=== PATIENT | female | born 1980 | race Caucasian/White ===

== ENCOUNTER 2018-01-14 14:18 | Outpatient (CLI) | payer MEDICAID, SELFPAY ==
[2018-01-14 14:56] LABS: Abs Immature Grans 0.01 k/cumm (0.0-0.09); Absolute Basophil Count 0.03 k/cumm (0.0-0.2); Absolute Eosinophil Count 0.18 k/cumm (0.0-0.7); Absolute Monocyte Count 0.59 k/cumm (0.11-0.7); Absolute Neutrophil Count 4.27 k/cumm (1.2-6.7); Basophils % 0.4; Eosinophils % 2.5; HCT 39.2 % (36.0-46.0); HGB 13.3 g/dL (12.0-15.5); Immature Grans % 0.1; Lymphocytes % 29.2; Mean Corp. HGB Concentration 33.9 g/dL (32.0-36.0); Mean Corpuscular Hemoglobin 29.7 pg (27.0-33.0); Mean Corpuscular Volume 87.5 fL (80-95); Mean Platelet Volume 8.9 fL (8.0-11.0); Monocytes % 8.2; Neutrophils % 59.6; Platelet Count 270 x1000/uL (130-400); RBC 4.48 m/cumm (4.00-5.20); RBC Distribution Width 12.5 % (11.7-14.6); White Blood Cell Count 7.18 k/cumm (4.4-10.8)
[2018-01-14 15:08] LABS: ALT 18 U/L (12-78); AST 16 U/L (15-37); Albumin 3.6 g/dL (3.4-5.0); Alkaline Phosphatase 75 U/L (46-116); Anion Gap 3.3 mmol/L (3-11); BUN 8 mg/dL (7-18); Bilirubin, Total 0.3 mg/dL (0.2-1.0); CO2 29.7 mmol/L (21.0-32.0); CREATININE 0.74 mg/dL (0.55-1.02); Calcium 8.6 mg/dL (8.5-10.1); Chloride 103 mmol/L (98-107); Glucose 102 mg/dL (70-100); Potassium 3.7 mmol/L (3.5-5.1); Sodium 136 mmol/L (136-145); Total Protein 7.2 g/dL (6.4-8.2)
== END 2018-01-14 14:38 ==
PROVIDERS: Visit Provider Internal Medicine Hematology & Oncology
DX: D69.3 Immune thrombocytopenic purpura (principal)
CPT/HCPCS: 36415; 80053; 85025

== ENCOUNTER 2018-04-06 13:06 | Emergency (ER) | payer OTHER, SELFPAY ==
[2018-04-06] VITALS (24 sets, daily range): BP systolic 107–126; BP diastolic 62–79; PULSE 75–114; RESP 7–24; TEMP 36.8; O2SAT 96–100
--- NOTE | 2018-04-06 13:17 | DI.CT_ITS ---
SYMPTOM/DIAGNOSIS: SOB/CHEST PAIN CHEST CT FOR PULMONARY EMBOLISM CT angiography was performed with multi slice acquisition and multi planar and 3D reconstruction. Comparison is made with 11 April 2017. No pulmonary emboli or aortic dissection is seen. No pleural or pericardial effusions are present. The heart size is normal. The previous exam showed bilateral pneumonia. There are small pulmonary nodules in the lower lobes which appear stable. IMPRESSION: No acute abnormality.
--- NOTE | 2018-04-06 13:20 | W.ED.GENAD ---
Discharge Plan Disposition Patient Disposition: HOME Condition: Stable Discharge Details Chief Complaint: RespSymp Clinical Impression: Infection, respiratory tract, Pleurisy Primary Care Provider: [facility] ED Provider: Garcia Franks Home Meds and New Rx's Prescriptions: Continue budesonide-formoterol [Symbicort] 80-4.5 mcg/actuation Hfa Aerosol Inhaler 1 puff Inhalation DAILY RF: 0 albuterol sulfate [ProAir HFA] 90 mcg/actuation Hfa Aerosol Inhaler 2 puff Inhalation Q4H PRN PRNRF: 0 Discontinued cephalexin 500 MG capsule 500 mg PO Q6H Qty: 19 RF: 0 lorazepam 0.5 MG tablet 0.5 mg PO BID PRN PRNQty: 10 RF: 0 Discharge Instructions Instructions: Pleurisy (ED), Upper Respiratory Infection (ED) Additional Instructions: Return immediately to the emergency department for any new or significant worsening of your symptoms. Otherwise follow-up with primary care as needed for reassessment or if not improving over the next week. Referrals: [facility] [Primary Care Provider] - (As needed for reassessment or if not improving) Discharge Data Discharge Date/Time-TO BE ENTERED AT DEPARTURE: 04/06/18 15:50 Medical Decision Making Patient presenting to the emergency department for chief complaint of chest pain. Patient states this morning she woke up with cough and some chest pain. She thought that it would go away but it is continued throughout the day. Patient does state history of pneumonia which felt similar in nature. Patient denies any fever chills but does state nasal congestion cough and sore throat that have been going on for the past couple days. Patient is very anxious and even states that she feels emotional at this time. Physical exam is unremarkable. Suspect viral upper respiratory tract infection with possible pleurisy but plan to check labs(including troponin) and include chest CT given the patient is tachycardic and short of breath along with chest. Pending results patient given acetaminophen and lorazepam. Given patient's emotional state there is a question of possible anxiety /panic attack exacerbating patient's symptoms Review of labs is unremarkable and shows no elevation of troponin, no leukocytosis, and a completely benign. CT imaging of the chest also shows no PE and no acute findings. Patient reassessed and states improvement in discomfort that chest pain seems to worsen with deep breathing and that she does have some posterior shoulder pain. Shoulder was palpated and shows soft tissue tenderness just below the scapula that reproduces discomfort. Given onset of symptoms is greater than 4 hours and I doubt ACS I do not feel that second troponin is needed. Patient was given lidocaine patch for shoulder discomfort and placed up on prednisone burst. Patient encouraged to return for any new or significant worsening of symptoms. After discussion of diagnosis and plan of care patient has no further needs, questions, or concerns and states clear understanding to return to the emergency department for any worsening symptoms. ECG Data Attestation: I personally reviewed and interpreted this ECG (s) as follows: Prior ECG tracings: available for review Interpretation: EKG reviewed with Dr. Mahmood and shows normal access sinus rhythm with rate of 89 and shows no acute ST changes HPI General Mode of arrival: ambulatory. Date/Time Provider Initiated Documentation: 04/06/18 13:07. Limitations to Documentation: no limitations. Information obtained by: patient and RN notes reviewed. History of Present Illness 37 year old F presents to the emergency department with the chief complaint of Chest pain, described as moderate, with intensity rated at 6. Quality is described as sharp, and is localized to the chest. Patient reports radiation to back. Patient started experiencing this hour(s) (5) and it has been constant. No relieving factors improve symptom(s), No exacerbating factors reported . Patient did receive the following treatments prior to arrival, other Related Data Home Medications Medication Instructions Recorded Confirmed albuterol sulfate [ProAir HFA] 2 puff INHALATION Q4H PRN PRN 04/06/18 04/06/18 budesonide-formoterol [Symbicort] 1 puff INHALATION DAILY 04/06/18 04/06/18 Allergies Allergy/AdvReac Type Severity Reaction Status Date / Time No Known Allergies Allergy Unverified 11/21/17 11:34 General Stated Complaint: RespSymp JULIO CESAR: 3 Review of Systems Constitutional Denies chills, Denies fever(s) and Denies malaise Cardiovascular Reports as per HPI, Reports chest pain, Denies syncope, Denies irregular heart rhythm, Denies palpitations and Denies dyspnea Respiratory Reports cough (x 4 days) and Denies dyspnea Gastrointestinal Denies abdominal pain, Denies nausea and Denies vomiting Neurologic Denies syncope Psychiatric Reports anxiety Endocrine Denies palpitations PFSH Family History Mother Breast cancer Maternal Grandfather Prostate cancer Maternal Aunt Breast cancer Lung cancer Maternal Cousin Non-Hodgkin lymphoma Maternal Great Aunt No problems noted. Maternal Great Aunt Colon cancer Maternal Great Aunt Lung cancer Maternal Great Aunt Asthma Maternal Great Grandmother Melanoma Maternal Great Grandfather Lung cancer Medical History ASCUS with positive high risk HPV cervical (05/01/16) Depression ITP (idiopathic thrombocytopenic purpura) Molluscum contagiosum Social History Smoking/Tobacco Use Status: Former Tobacco Use Surgical History Biopsy, Lymph Node section (01/27/16) wisdom tooth extraction Exam Const General: cooperative, anxious and not diaphoretic Nutritional Appearance: average body habitus Orientation: alert, awake and oriented x3 Limitations: mental status not altered Neck Neck: normal visual inspection, full ROM, trachea midline, supple and no anterior neck swelling Thyroid: thyroid normal Carotids: normal carotid upstroke and no bruits Chest Chest: normal inspection of the chest Resp Effort & Inspection: normal respiratory effort and able to speak in complete sentences Auscultation: clear to auscultation bilaterally Cardio Jugular venous pressure: no JVD Palpation: normal PMI Rate: regular rate Rhythm: regular rhythm Heart Sounds: S1 normal, S2 normal, no click, no gallops, no murmurs and no rubs Bruits: no abdominal aortic bruits and no carotid bruits Pulses: radial pulses present bilaterally 2+ GI Inspection: normal to inspection Palpation: soft, no aortic enlargement, no pulsatile masses and nontender Auscultation: normal bowel sounds Skin General skin exam: no rashes or lesions noted Neuro General: alert, awake, oriented x3, tone normal and moves all extremities Course Vital Signs Temperature 36.8 C 04/06/18 13:11 Pulse 105 H 04/06/18 13:11 Respiratory Rate 18 04/06/18 13:11 Blood Pressure 126/76 04/06/18 13:11 Pulse Oximetry 99 04/06/18 13:11 Temperature 36.8 C 04/06/18 13:11 Temperature Source Temporal Artery Scan 04/06/18 13:11 Pulse 105 H 04/06/18 13:11 Respiratory Rate 18 04/06/18 13:11 Respiratory Effort Incrsd Work of Breathing 04/06/18 13:14 Blood Pressure 126/76 04/06/18 13:11 Blood Pressure Position Sitting 04/06/18 13:11 Pulse Oximetry 99 04/06/18 13:11 Oxygen Delivery Method Room Air 04/06/18 13:11 Oxygen Flow Rate 0 04/06/18 13:11 Pain Level 6 04/06/18 13:11
--- NOTE | 2018-04-06 13:27 | ED.GENADUL_ITS ---
Discharge Plan Disposition Patient Disposition: HOME Condition: Stable Discharge Details Chief Complaint: RespSymp Clinical Impression: Infection, respiratory tract, Pleurisy Primary Care Provider: [facility] ED Provider: Garcia Franks Home Meds and New Rx's Prescriptions: Continue budesonide-formoterol [Symbicort] 80-4.5 mcg/actuation Hfa Aerosol Inhaler 1 puff Inhalation DAILY RF: 0 albuterol sulfate [ProAir HFA] 90 mcg/actuation Hfa Aerosol Inhaler 2 puff Inhalation Q4H PRN PRNRF: 0 Discontinued cephalexin 500 MG capsule 500 mg PO Q6H Qty: 19 RF: 0 lorazepam 0.5 MG tablet 0.5 mg PO BID PRN PRNQty: 10 RF: 0 Discharge Instructions Instructions: Pleurisy (ED), Upper Respiratory Infection (ED) Additional Instructions: Return immediately to the emergency department for any new or significant worsening of your symptoms. Otherwise follow-up with primary care as needed for reassessment or if not improving over the next week. Referrals: [facility] [Primary Care Provider] - (As needed for reassessment or if not improving) Discharge Data Discharge Date/Time-TO BE ENTERED AT DEPARTURE: 04/06/18 15:50 Medical Decision Making Patient presenting to the emergency department for chief complaint of chest pain. Patient states this morning she woke up with cough and some chest pain. She thought that it would go away but it is continued throughout the day. Patient does state history of pneumonia which felt similar in nature. Patient denies any fever chills but does state nasal congestion cough and sore throat that have been going on for the past couple days. Patient is very anxious and even states that she feels emotional at this time. Physical exam is unremarkable. Suspect viral upper respiratory tract infection with possible pleurisy but plan to check labs(including troponin) and include chest CT given the patient is tachycardic and short of breath along with chest. Pending results patient given acetaminophen and lorazepam. Given patient's emotional state there is a question of possible anxiety /panic attack exacerbating patient 's symptoms Review of labs is unremarkable and shows no elevation of troponin, no leukocytosis, and a completely benign. CT imaging of the chest also shows no PE and no acute findings. Patient reassessed and states improvement in discomfort that chest pain seems to worsen with deep breathing and that she does have some posterior shoulder pain. Shoulder was palpated and shows soft tissue tenderness just below the scapula that reproduces discomfort. Given onset of symptoms is greater than 4 hours and I doubt ACS I do not feel that second troponin is needed. Patient was given lidocaine patch for shoulder discomfort and placed up on prednisone burst. Patient encouraged to return for any new or significant worsening of symptoms. After discussion of diagnosis and plan of care patient has no further needs, questions, or concerns and states clear understanding to return to the emergency department for any worsening symptoms. ECG Data Attestation: I personally reviewed and interpreted this ECG (s) as follows: Prior ECG tracings: available for review Interpretation: EKG reviewed with Dr. Mahmood and shows normal access sinus rhythm with rate of 89 and shows no acute ST changes HPI General Mode of arrival: ambulatory . Date/Time Provider Initiated Documentation: 04/06/18 13:07 . Limitations to Documentation: no limitations . Information obtained by: patient and RN notes reviewed . History of Present Illness 37 year old F presents to the emergency department with the chief complaint of Chest pain, described as moderate, with intensity rated at 6. Quality is described as sharp, and is localized to the chest. Patient reports radiation to back. Patient started experiencing this hour(s) (5) and it has been constant. No relieving factors improve symptom(s), No exacerbating factors reported . Patient did receive the following treatments prior to arrival, other Related Data Home Medications Medication Instructions Recorded Confirmed albuterol sulfate [ProAir HFA] 2 puff INHALATION Q4H PRN PRN 04/06/18 04/06/18 budesonide-formoterol [Symbicort] 1 puff INHALATION DAILY 04/06/18 04/06/18 Allergies Allergy/AdvReac Type Severity Reaction Status Date / Time No Known Allergies Allergy Unverified 11/21/17 11:34 General Stated Complaint: RespSymp JULIO CESAR: 3 Review of Systems Constitutional Denies chills, Denies fever(s) and Denies malaise Cardiovascular Reports as per HPI, Reports chest pain, Denies syncope, Denies irregular heart rhythm, Denies palpitations and Denies dyspnea Respiratory Reports cough (x 4 days) and Denies dyspnea Gastrointestinal Denies abdominal pain, Denies nausea and Denies vomiting Neurologic Denies syncope Psychiatric Reports anxiety Endocrine Denies palpitations PFSH Family History Mother Breast cancer Maternal Grandfather Prostate cancer Maternal Aunt Breast cancer Lung cancer Maternal Cousin Non-Hodgkin lymphoma Maternal Great Aunt No problems noted. Maternal Great Aunt Colon cancer Maternal Great Aunt Lung cancer Maternal Great Aunt Asthma Maternal Great Grandmother Melanoma Maternal Great Grandfather Lung cancer Medical History ASCUS with positive high risk HPV cervical (05/01/16) Depression ITP (idiopathic thrombocytopenic purpura) Molluscum contagiosum Social History Smoking/Tobacco Use Status: Former Tobacco Use Surgical History Biopsy, Lymph Node section (01/27/16) wisdom tooth extraction Exam Const General: cooperative, anxious and not diaphoretic Nutritional Appearance: average body habitus Orientation: alert, awake and oriented x3 Limitations: mental status not altered Neck Neck: normal visual inspection, full ROM, trachea midline, supple and no anterior neck swelling Thyroid: thyroid normal Carotids: normal carotid upstroke and no bruits Chest Chest: normal inspection of the chest Resp Effort & Inspection: normal respiratory effort and able to speak in complete sentences Auscultation: clear to auscultation bilaterally Cardio Jugular venous pressure: no JVD Palpation: normal PMI Rate: regular rate Rhythm: regular rhythm Heart Sounds: S1 normal, S2 normal, no click, no gallops, no murmurs and no rubs Bruits: no abdominal aortic bruits and no carotid bruits Pulses: radial pulses present bilaterally 2+ GI Inspection: normal to inspection Palpation: soft, no aortic enlargement, no pulsatile masses and nontender Auscultation: normal bowel sounds Skin General skin exam: no rashes or lesions noted Neuro General: alert, awake, oriented x3, tone normal and moves all extremities Course Vital Signs Temperature 36.8 C 04/06/18 13:11 Pulse 105 H 04/06/18 13:11 Respiratory Rate 18 04/06/18 13:11 Blood Pressure 126/76 04/06/18 13:11 Pulse Oximetry 99 04/06/18 13:11 Temperature 36.8 C 04/06/18 13:11 Temperature Source Temporal Artery Scan 04/06/18 13:11 Pulse 105 H 04/06/18 13:11 Respiratory Rate 18 04/06/18 13:11 Respiratory Effort Incrsd Work of Breathing 04/06/18 13:14 Blood Pressure 126/76 04/06/18 13:11 Blood Pressure Position Sitting 04/06/18 13:11 Pulse Oximetry 99 04/06/18 13:11 Oxygen Delivery Method Room Air 04/06/18 13:11 Oxygen Flow Rate 0 04/06/18 13:11 Pain Level 6 04/06/18 13:11
[2018-04-06 13:29] LABS: Abs Immature Grans 0.02 k/cumm (0.0-0.09); Absolute Basophil Count 0.02 k/cumm (0.0-0.2); Absolute Eosinophil Count 0.32 k/cumm (0.0-0.7); Absolute Lymphocyte Count 2.32 k/cumm (1.2-3.4); Absolute Monocyte Count 0.56 k/cumm (0.11-0.7); Absolute Neutrophil Count 4.33 k/cumm (1.2-6.7); Basophils % 0.3; Eosinophils % 4.2; HCT 40.8 % (36.0-46.0); HGB 13.7 g/dL (12.0-15.5); Immature Grans % 0.3; Lymphocytes % 30.6; Mean Corp. HGB Concentration 33.6 g/dL (32.0-36.0); Mean Corpuscular Hemoglobin 29.7 pg (27.0-33.0); Mean Corpuscular Volume 88.3 fL (80-95); Monocytes % 7.4; Neutrophils % 57.2; Platelet Count 296 x1000/uL (130-400); RBC 4.62 m/cumm (4.00-5.20); RBC Distribution Width 12.8 % (11.7-14.6); White Blood Cell Count 7.57 k/cumm (4.4-10.8)
[2018-04-06 13:41] LABS: PTT Activated 26.5 sec (21.0-31.4); Prothrombin Time 9.9 sec (9.3-10.8)
[2018-04-06] MEDS: Omnipaque 350 MG/ML 100 ML BTL IJ (13:43)
[2018-04-06 13:45] LABS: ALT 21 U/L (12-78); AST 16 U/L (15-37); Albumin 3.8 g/dL (3.4-5.0); Alkaline Phosphatase 81 U/L (46-116); Anion Gap 8.5 mmol/L (3-11); BUN 9 mg/dL (7-18); Bilirubin, Total 0.2 mg/dL (0.2-1.0); CO2 28.5 mmol/L (21.0-32.0); CREATININE 0.71 mg/dL (0.55-1.02); Calcium 8.9 mg/dL (8.5-10.1); Chloride 101 mmol/L (98-107); Glucose 97 mg/dL (70-100); Magnesium 1.8 mg/dL (1.8-2.4); Potassium 3.7 mmol/L (3.5-5.1); Sodium 138 mmol/L (136-145); Total Protein 7.5 g/dL (6.4-8.2); Troponin I < 0.02 ng/mL (0.00-0.06)
[2018-04-06] MEDS: LORazepam 2 MG/ML VIAL 1 MG IVP (13:58)
--- NOTE | 2018-04-06 14:10 | DI.VRAD_ITS ---
EXAM: CT Angiography Chest With Intravenous Contrast EXAM DATE/TIME: 04/06/2018 1:19 PM CLINICAL HISTORY: 37 years old, female; Pain and signs and symptoms; Shortness of breath; Chest pain; Patient HX: Sob/chest pain; Additional info: Per PT: Symptoms started this morning; Pneumonia last year at same time TECHNIQUE: Axial computed tomographic angiography images of the chest with intravenous contrast using CT angiography protocol. Coronal and sagittal reformatted images were created and reviewed. MIP reconstructed images were created and reviewed. COMPARISON: CT CHEST FOR PULMONARY EMBOLUS 04/11/2017 1:11 PM FINDINGS: Pulmonary arteries: Normal. No pulmonary emboli. Aorta: Normal. No aortic aneurysm. No aortic dissection. Lungs: Stable 3 mm right lower lobe nodules. Stable 6 mm left lower lobe nodule. Previous pleural-based lingular nodule is not well seen. Pleural space: Normal. No pneumothorax. No pleural effusion. Heart: Normal. No cardiomegaly. No pericardial effusion. Liver: There is hepatomegaly and fatty infiltration of the liver. Spleen: Prominent spleen Lymph nodes: Unremarkable. No enlarged lymph nodes. Bones/joints: Unremarkable. No acute fracture. Soft tissues: Unremarkable. Other findings: Resolution of the previous multifocal pneumonia IMPRESSION: No PE or acute aortic findings. Stable lung nodules.As per Fleischner Society guidelines for follow-up and management of pulmonary nodules: For patients at low risk (minimal or absent history of smoking and of other known risk factors), recommend follow-up chest CT at 12 months; if unchanged, no further follow-up. For patient at high risk (history of smoking or of other known risk factors), recommend initial follow-up chest CT at 6-12 months, then at 18-24 months if no interval if no interval change Dictated and Authenticated by: Stacy Mckeon MD. Ordering:KIERRA GALARZA MD
[2018-04-06] MEDS: Acetaminophen 500 MG TAB 1000 MG PO (14:35)
[2018-04-06] MEDS: Lidocaine 5% Patch 1 PATCH TP (14:36)
[2018-04-06] MEDS: predniSONE 20 MG TAB 60 MG PO (15:17)
== END 2018-04-06 15:50 | disposition home or self-care (01) ==
PROVIDERS: Emergency Provider Nurse Practitioner Family
DX: J06.9 Acute upper respiratory infection, unspecified (principal); R09.1 Pleurisy; R00.0 Tachycardia, unspecified; R06.02 Shortness of breath
CPT/HCPCS: 36415; 71275; 80053; 81025; 93005; 96374; 99285; 83735; 84484; 85025; 85610; 85730; 93010; 99284; J2060; J3490; J7512

== ENCOUNTER 2021-07-10 01:18 | Outpatient (CLI) | payer OTHER, SELFPAY ==
--- NOTE | 2021-07-10 | DI.CT_ITS ---
Exam(s) CT ABDOMEN PELVIS W EXAM: CT ABDOMEN PELVIS W CLINICAL HISTORY: [id number] SWEATS,ABD BLOATING,CONSTIPATION,? LYMPHADENOPATHY. TECHNIQUE: Imaging Protocol: Axial computed tomography images with coronal and sagittal reformatted images were created and reviewed CONTRAST MATERIAL: Intravenous: Omnipaque 350 Contrast volume:100 ml Oral: yes COMPARISON: CT RENAL COLIC WO CONTRAST from 10/15/2014 FINDINGS: ABDOMEN: Lung Bases: Normal where visualized. Liver: Normal density. No measurable mass. Gallbladder and biliary tract: No radiodense calculus or dilation. Pancreas: Normal density, no abnormal calcifications or inflammatory process. Spleen: Normal. Kidneys: Normal size, contour and axis. Nonobstructing stone mid left kidney. No obstructive uropat hy. No masses seen. Adrenal glands: No masses seen. Abdominal Aorta: Abdominal portion non-dilated. PELVIS: Bladder: No gross wall thickening. No calculi.No focal mass. Bowel: No obstruction or bowel wall thickening. Appendix normal. Peritoneal cavity: No ascites, collection or mesenteric inflammatory response. Bones: Within normal limits for age. Reproductive organs: Within normal limits. Lymph nodes: Unremarkable. Impression: Unremarkable CT scan of the abdomen and pelvis. No evidence of adenopathy. Small nonobstructing sto ne mid left kidney RADIATION DOSE DELIVERED: 1,024.8mGy.cm Total DLP DATA REPOSITORY: All CT scans at this facility are submitted to the National Radiology Data Registry (NRDR) Dose Index Registry (DIR) with the [employer] (ACR). RADIATION OPTIMIZATION: All CT scans at this facility use at least one of these dose optimization te chniques: automated exposure control; mA and/or kV adjustment per patient size (includes targeted exa ms where dose is matched to clinical indication); or iterative reconstruction.
[2021-07-10] MEDS: Omnipaque 350 MG/ML 100 ML BTL IJ (14:01)
== END 2021-07-10 01:38 ==
PROVIDERS: Visit Provider Nurse Practitioner Adult Health
DX: R14.0 Abdominal distension (gaseous) (principal); K59.09 Other constipation; R61 Generalized hyperhidrosis; N20.0 Calculus of kidney
CPT/HCPCS: 74177; J3490

== ENCOUNTER 2022-01-01 06:15 | Day surgery (SDC) | payer OTHER, SELFPAY ==
--- NOTE | 2022-01-01 06:10 | HPE_ITS ---
Assessment and Plan Assessment and plan (1) Anemia: Status: Chronic Assessment and plan: Marsha is a pleasant 41-year-old with iron deficiency anemia which is most likely multifactorial.? With her ITP she does have some heavy periods as well as sometimes rectal bleeding from known internal hemorrhoids.? This usually will happen when her platelets are low.? Last platelet count was 207,000.? Colonoscopy is recommended by her primary care just for completeness of work- up.? We discussed doing an internal hemorrhoid banding at the time of her colonoscopy to hopefully slow down any bleeding she may have when her platelets are low.? I will check her platelets the day of the procedure. Risks, benefits and complications have been reviewed. Complications include but are not limited to bleeding, pain, perforation, missed small lesion/polyp, sore throat, aspiration and adverse reaction to the medications. Questions were entertained and answered to their satisfaction and they wished to proceed. No guarantees were given or implied. Anesthesia: general (without airway) Previous surgical intolerances: No Previous surgical complications: No Pulmonary risk factors: age > 60 Date of surgery: 01/01/22 Planned procedure: Yes Sleep apnea risks: No Can climb one flight of stairs (12-13 steps) in less than 30 seconds without stopping and without symptoms: Yes The surgery proposed for this patient is: low risk Active cardiac conditions: none Active risk factors: none ASA (acetylsalicylic acid): not used Beta blockers: not used Colonoscopy under sedation History of Present Illness Narrative: Marsha is here today to discuss having a colonoscopy done.? She has iron deficiency anemia which is most likely multifactorial.? She has ITP and when her platelets drop she tends to have pretty heavy periods.? She also has some internal hemorrhoids that can bleed quite a bit when her platelets are low.? She is treated with prednisone on a as needed basis depending on her platelet count.? She has never had the petechiae.? She has had no melena.? She has no family history of colon cancer that she is aware of.? She has no abdominal pain or unintentional weight loss. Past medical history significant for the ITP.? Last platelet count was 207,000. There have been no changes in her health since I last saw her. 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 Depression stopped Citalopram with 2015 . Did not resume. ITP (idiopathic thrombocytopenic purpura) Seen at [facility], no transfusions. 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 noted at time of colpo 04/2016. Surgical History Biopsy, Lymph Node section (01/27/16) PCD for non-reassuring FHR. Ricarda Arteaga. wisdom tooth extraction Family History Mother Breast cancer 42 Maternal Grandfather Prostate cancer Maternal Aunt Breast cancer Lung cancer Maternal Cousin Non-Hodgkin lymphoma Maternal Great Aunt No problems noted. Maternal Great Aunt Colon cancer Maternal Great Aunt Lung cancer Maternal Great Aunt Asthma Maternal Great Grandmother Melanoma Maternal Great Grandfather Lung cancer Social History Smoking/Tobacco Use Status: Former Tobacco Use Quit Date: 05/13/14 Smoking risk assessment performed?: Yes Alcohol Intake: current Alcohol Intake frequency: holidays/special occasions only Drug use: Never Substance use type: does not use Current gender identity: female Do you feel safe at home: Yes Do you feel safe in your relationship?: Yes Meds Allergies and Home Medications Allergies Allergy/AdvReac Type Severity Reaction Status Date / Time No Known Allergies Allergy Unverified 01/01/22 06:39 Home Medications Medication Instructions Recorded Confirmed Type albuterol sulfate 90 mcg/actuation 2 puff inhalation Q4H PRN PRN 04/06/18 01/01/22 History aerosol inhaler (ProAir HFA) escitalopram oxalate 20 mg tablet 20 mg PO DAILY 11/21/21 01/01/22 History ferrous sulfate 325 mg (65 mg 325 mg PO DAILY 11/21/21 01/01/22 History iron) tablet norethindrone 1 mg-ethinyl 1 tab PO DAILY 11/21/21 01/01/22 History estradiol 35 mcg tablet (Dasetta) bisacodyl 5 mg tablet,delayed 5 mg PO ONCE #4 tabs 12/01/21 01/01/22 Rx release (Dulcolax (bisacodyl)) polyethylene glycol 3350 17 17 g PO ONCE #238 grams 12/01/21 01/01/22 Rx gram/dose oral powder polyethylene glycol 3350 17 17 g PO DAILY PRN 12/01/21 01/01/22 History gram/dose oral powder (Miralax) Exam HENIN Head: normocephalic and atraumatic Resp Effort & Inspection: normal respiratory effort Auscultation: clear to auscultation bilaterally Cardio Rate: regular rate Rhythm: regular rhythm Results Labs Result diagrams: 01/01/22 06:26
--- NOTE | 2022-01-01 06:12 | COLE_ITS ---
Colonoscopy Report Date of procedure: 01/01/22 Pre-op diagnosis general: anemia Post-op diagnosis procedure note: other (diverticulosis) Procedure: Colonoscopy Surgeon: Cristiana Barraza Anesthesia Type: General:No Airway Estimated blood loss (mL): 0 Pathology: none sent Complications: None Disposition: same day Indications: Marsha is a pleasant 41-year-old with iron deficiency anemia which is most likely multifactorial.? With her ITP she does have some heavy periods as well as sometimes rectal bleeding from known internal hemorrhoids.? This usually will happen when her platelets are low.? Last platelet count was 207,000.? Colonoscopy is recommended by her primary care just for completeness of work- up.? We discussed doing an internal hemorrhoid banding at the time of her colonoscopy to hopefully slow down any bleeding she may have when her platelets are low.? I will check her platelets the day of the procedure. Risks, benefits and complications have been reviewed. Complications include but are not limited to bleeding, pain, perforation, missed small lesion/polyp, sore throat, aspiration and adverse reaction to the medications. Questions were entertained and answered to their satisfaction and they wished to proceed. No guarantees were given or implied. Colonoscopy under sedation ? Prep: Miralax/Dulcolax Procedure Start Time: 07:23 Procedure End Time: 07:56 Retraction Time: 18 minutes Findings: craig-diverticulosis a few external and internal hemorrhoidal skin tags Procedure Description: After informed consent was obtained the patient was taken to the procedure room and placed in a left decubitous position. Monitors were applied and a time out was done. The patients name, date of , procedure, allergies to medications and metal in their body was reviewed. The patient was then sedated. Once sedated and comfortable a rectal exam was done. External exam was normal. Internal exam revealed a normal sphincter tone and no palpable masses. The scope was then introduced and retro-flexed. No internal hemorrhoids, polyps or masses were identified on retro-flexion. The scope was then advanced to the cecum withot difficulty. The ileocecal vlave and appendiceal orifice were identified. The prep was adequate. The scope was then slowly retracted over 18 minutes back into the rectum. There were no Polyps. There was mild craig- diverticulosis noted. The scope was removed and the patient was woken up and taken back to Same day surgery in stable condition. The patient tolerated the procedure well and there were no immediate complications. Follow up: The patient should follow up in 10 years unless they develop changes in bowel habits or other new gastrointestinal complaints.
--- NOTE | 2022-01-01 06:13 | W.PM.DSUDISC ---
Discharge Plan Disposition Patient Disposition: HOME Condition: Good Discharge Details Reason For Visit: Colonoscopy Attending Provider: Cristiana Barraza Primary Care Provider: [facility] Home Meds and New Rx's Prescriptions: Continued Dasetta (28) 1-35 mg-mcg tablet 1 tab PO DAILY escitalopram oxalate 20 mg tablet 20 mg PO DAILY ferrous sulfate 325 mg (65 mg iron) tablet 325 mg PO DAILY polyethylene glycol 3350 [Miralax] 17 gram/dose powder 17 g PO DAILY PRN albuterol sulfate [ProAir HFA] 90 mcg/actuation Hfa Aerosol Inhaler 2 puff Inhalation Q4H PRN PRN Discontinued bisacodyl [Dulcolax (bisacodyl)] 5 mg tablet,delayed release (DR/EC) 5 mg PO ONCE Qty: 4 0RF Rx Instructions: Take according to provider's instructions for colonoscopy prep. polyethylene glycol 3350 17 gram/dose powder 17 g PO ONCE Qty: 238 0RF Rx Instructions: To be taken as directed by prescriber's office for colonoscopy prep. Discharge Instructions Instructions: Diverticulosis (DC) Additional Instructions: Findings: diverticulosis Follow up: 10 years Please call if you develop: fevers >101.5 Nausea or Vomiting Abdominal pain that is not transient Rectal bleeding that is more then a tbsp A hard abdomen and inability to pass gas DAY SURGERY UNIT POST ENDOSCOPY INSTRUCTIONS Instructions for everyone who is given Anesthesia: For your safety, please do the following for the next 24 Hours: a. Do not drive or operate dangerous equipment b. Do not drink alcohol beverages or use any recreational drugs for the first 24 hours or while taking pain medications. The medications in your body may have a reaction that can be dangerous. c. Do not make any important decisions or sign any important papers 1. Generally there are no restrictions on your activity after a day or so has gone by, but you may feel a bit fatigued for a few days. 2. After you arrive home you may have a light meal and return to a normal diet as you can tolerate it without feeling sick to your stomach. 3. After surgery, you may feel pain or discomfort. This should be only transient, but if it persists please contact your doctor. 4. If there are any questions regarding the findings of your procedure, please feel free to contact your doctor. 6. If you are unable to contact your doctor with a problem, contact the hospital at [phone]. 9. Continue all your regular medications unless directed otherwise. I understand the above instructions and have no questions. Signature of Patient or Responsible Adult Escort Date/Time Name of Responsible Adult Escort Signature of Nurse Date/Time Activity:: Activity as Tolerated Diet:: high fiber Discharge Orders Discharge Orders: Discharge Order (Routine); Ordered 01/01/22 Ordered By: Cristiana Barraza DS: Diagnosis Discharge Diagnosis (1) Anemia: Status: Chronic
[2022-01-01 06:23] VITALS: BP 80/68; PULSE 79; RESP 16; TEMP 36.4; O2SAT 97
[2022-01-01 06:29] LABS: Platelet Count 196 10^3/uL (130-400)
[2022-01-01 06:45] VITALS: BP 105/63; PULSE 73
[2022-01-01] MEDS: Lactated Ringers 1,000 ML 80 ML IV (06:58)
--- NOTE | 2022-01-01 07:05 | W.ANESPRE ---
General Info Date of Service Date Performed: 01/01/22 Height: 5 ft 9 in Weight: 86.3 kg Body Mass Index (BMI): 28.0 Surgical Procedure: Operation Date: 01/01/22 07:40 Proposed Procedure Side Surgeon p Colonoscopy Cristiana Barraza MD s Hemorrhoid Banding Cristiana Barraza MD Meds Allergies and Home Medications Allergies Allergy/AdvReac Type Severity Reaction Status Date / Time No Known Allergies Allergy Unverified 01/01/22 06:39 Home Medication Medication Instructions Recorded albuterol sulfate 90 mcg/actuation 2 puff inhalation Q4H PRN PRN 04/06/18 aerosol inhaler (ProAir HFA) escitalopram oxalate 20 mg tablet 20 mg PO DAILY 11/21/21 ferrous sulfate 325 mg (65 mg 325 mg PO DAILY 11/21/21 iron) tablet norethindrone 1 mg-ethinyl 1 tab PO DAILY 11/21/21 estradiol 35 mcg tablet (Dasetta) bisacodyl 5 mg tablet,delayed 5 mg PO ONCE #4 tabs 12/01/21 release (Dulcolax (bisacodyl)) polyethylene glycol 3350 17 17 g PO ONCE #238 grams 12/01/21 gram/dose oral powder polyethylene glycol 3350 17 17 g PO DAILY PRN 12/01/21 gram/dose oral powder (Miralax) Current Visit Medications: Current Medications Generic Name Dose Route Start Last Admin Trade Name Freq PRN Reason Stop Dose Admin Hyoscyamine Sulfate 0.125 mg 01/01/22 06:09 Hyoscyamine 0.125 Mg Sl/Oral/Chew SL DIRECTED PRN Ringer's Solution 1,000 mls @ 80 mls/hr 01/01/22 06:00 01/01/22 06:58 IV 01/28/22 23:59 80 mls/hr INFUSION KATJA Administration IV Miscellaneous Supplies 1 each 01/01/22 06:00 Iv Access IV 01/28/22 23:59 DIRECTED KATJA Ondansetron HCl 4 mg 01/01/22 06:09 Ondansetron 4 Mg/2 Ml Vial IVP Q4H PRN PRN Nausea / Vomiting Sodium Chloride 0 ml 01/01/22 06:00 Normal Saline Flush 10 Ml Syr IV 01/28/22 23:59 PRN PRN Sodium Chloride 0 ml 01/01/22 06:00 Normal Saline 10 Ml Vial IJ 01/28/22 23:59 DIRECTED PRN Sterile Water 0 ml 01/01/22 06:00 Water,Injection,Sterile 10 Ml Vial IJ 01/28/22 23:59 DIRECTED PRN PFSH Active Problems Active Problems: Problem Status Onset Code Anemia D64.9 Medical History Medical History 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 Depression stopped Citalopram with 2015 . Did not resume. ITP (idiopathic thrombocytopenic purpura) Seen at [facility], no transfusions. 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 noted at time of colpo 04/2016. Surgical History Surgical History Biopsy, Lymph Node section (01/27/16) PCD for non-reassuring FHR. Ricarda Arteaga. wisdom tooth extraction Tobacco Smoking/Tobacco Use Status: Former Tobacco Use Alcohol Alcohol Intake: current Alcohol intake frequency: holidays/special occasions only Substance Use Substance use: Never Substance use type: does not use Vital Signs and Lab Results Vital Signs Most Recent Vital Signs in EMR: Most Recent Vital Signs Temp Pulse Resp BP Pulse Ox 36.4 C L 73 16 105/63 97 01/01/22 06:23 01/01/22 06:45 01/01/22 06:23 01/01/22 06:45 01/01/22 06:23 Point of Care Results Point of Care Results: POC- Test(urine) Negative 01/01/22 06:41 Lab Results Result Diagrams: 01/01/22 06:26 Blood Type / Crossmatch: No Data to Display Complete Blood Count: Platelet Count 196 10^3/uL (130-400) 01/01/22 06:26 Complete Metabolic Panel: No Data to Display Liver Function Panel: No Data to Display Coagulation Panel: No Data to Display Cardiac Panel: No Data to Display Arterial Blood Gas: No Data to Display Venous Blood Gas: No Data to Display Pancreas Panel: No Data to Display Thyroid Panel: No Data to Display Infectious Disease: No Data to Display Blood Cultures: No Data to Display Toxicology Panel: No Data to Display Panel: No Data to Display Anesthesia Assessment and Plan Anesthesia History Personal History: No History of Anesthesia Complications Family History: No Family History of Anesthesia Complications Exercise Tolerance Exercise Tolerance: Metabolic Equivalents>4 Pertinent Negatives Pertinent Negatives: No Symptoms of GERD, No Major Cardiovascular Symptoms or Complaints, No Major Pulmonary Symptoms or Complaints (Asthma I feel good today , last rescue inhaler 6 months ago) and No History of CVA/TIA Cardiac & Pulmonary Exam Cardiac Exam: Normal S1/S2 Heart Sounds Pulmonary Exam: Clear Bilateral Breath Sounds Implantable Cardiac Device Does patient have a Pacemaker or an ICD?: No Airway Exam Known Difficult Airway: No Mallampati Class: 1 Mouth Opening: Normal (> 3cm) Thyromental Distance: Greater than 3 cm Neck Range of Motion: Full ROM Neck Circumference: Normal Teeth Condition: Normal Dentition Airway Comments: Bottom right crown ASA Classification ASA Score: ASA 2 Emergency Case?: No NPO Status NPO Status: NPO Clears >2 hours, Solids >8 hours Status Status: Negative HCG Anesthesia Plan Resuscitation Status: Full Code Anesthesia Technique: General Anesthesia Airway Planned: Natural Airway Monitors Used: Standard Monitors
[2022-01-01 07:08] VITALS: BMI 28.0
[2022-01-01 08:04] VITALS: BP 102/62; PULSE 65; RESP 16; TEMP 36.6; O2SAT 99
--- NOTE | 2022-01-01 08:08 | W.ANESPOSTOP ---
Postoperative Evaluation Date, Time and Location Date Performed: 01/01/22 Time Performed: 08:08 Patient Location: Day Surgery Unit Vital Signs Most Recent Imported Vital Signs: Most Recent Vital Signs Temp Pulse Resp BP Pulse Ox 36.4 C L 73 16 105/63 97 01/01/22 06:23 01/01/22 06:45 01/01/22 06:23 01/01/22 06:45 01/01/22 06:23 Most Recent Manually Entered Vital Signs: Adult Blood Pressure: 102/62 Heart Rate: 78 Respirations: 12 Oxygen Saturation (%): 99 Temperature (C): 36.3 C Pain Score (0-10 Scale): 0 Pain Score Most Recent Pain Score: Most Recent Pain Score Pain Level 0 01/01/22 06:45 Assessment Mental Status: Awake (Alert & Oriented to Patient Baseline) Airway and Respiratory Function: Patent airway with normal (patient baseline) respiratory exam Cardiovascular Function: Hemodynamically Stable Hydration Status: Adequately Hydrated Nausea & Vomiting: No Nausea or Vomiting Pain: Pt. Denies Any Pain Peripheral Nerve Block: Patient did not receive a nerve block
[2022-01-01 08:09] VITALS: BP 102/62; PULSE 78; RESP 12; TEMPC 36.3; O2SAT 99
[2022-01-01] MEDS: Hyoscyamine 0.125 MG SL/ORAL/CHEW SL (08:14)
[2022-01-01 08:35] VITALS: BP 99/66; PULSE 65; RESP 16; TEMP 36.4; O2SAT 100
== END 2022-01-01 08:55 | disposition home or self-care (01) ==
PROVIDERS: Visit Provider Surgery
PROC: 0DJD8ZZ Inspection of Lower Intestinal Tract, Via Natural or Artificial Opening Endoscopic (ICD-10-PCS; CPT 45378; principal; 2022-01-01 07:30)
DX: D50.9 Iron deficiency anemia, unspecified (principal); D69.3 Immune thrombocytopenic purpura; K57.30 Diverticulosis of large intestine without perforation or abscess without bleeding; K62.5 Hemorrhage of anus and rectum
CPT/HCPCS: 45378; 36415; 81025; 85049; J3490

== ENCOUNTER 2022-05-08 03:37 | Outpatient (CLI) | payer OTHER, SELFPAY ==
[2022-05-08 16:26] LABS: Abs Immature Grans 0.04 10^3/uL (0.0-0.06); Absolute Basophil Count 0.03 10^3/uL (0.0-0.2); Absolute Eosinophil Count 0.22 10^3/uL (0.0-0.7); Absolute Lymphocyte Count 1.79 10^3/uL (1.2-3.4); Basophils % 0.3; HCT 38.4 % (36.0-46.0); HGB 12.8 g/dL (11.2-15.7); Immature Grans % 0.4; Lymphocytes % 16.1; MCH 29.2 pg (27.0-33.0); MCHC 33.3 % (32.0-36.0); MCV 88 fL (80-95); Neutrophils % 76.2; Platelet Count 248 10^3/uL (130-400); RBC 4.39 10^6/uL (3.93-5.22); RDW 12.9 % (11.7-14.6); RDW-SD 41.8 fL; WBC 11.11 10^3/uL (4.4-10.8)
[2022-05-08 16:27] LABS: Absolute Monocyte Count 0.56 10^3/uL (0.1-0.8); Absolute Neutrophil Count 8.47 10^3/uL (1.2-6.7)
== END 2022-05-08 03:38 | disposition home or self-care (01) ==
PROVIDERS: Visit Provider Nurse Practitioner Adult Health
DX: D69.3 Immune thrombocytopenic purpura (principal)
CPT/HCPCS: 36415; 85025

== ENCOUNTER 2022-05-16 10:47 | Outpatient (CLI) | payer OTHER, SELFPAY ==
[2022-05-16 11:06] LABS: HCT 39.6 % (36.0-46.0); HGB 13.1 g/dL (11.2-15.7); MCH 29.4 pg (27.0-33.0); MCHC 33.1 % (32.0-36.0); MCV 89 fL (80-95); MPV 8.7 fL (8.0-11.0); Platelet Count 296 10^3/uL (130-400); RBC 4.45 10^6/uL (3.93-5.22); RDW 12.7 % (11.7-14.6); RDW-SD 41.9 fL; WBC 7.61 10^3/uL (4.4-10.8)
== END 2022-05-16 10:48 | disposition home or self-care (01) ==
LOC: LBO 11:06
PROVIDERS: Visit Provider Nurse Practitioner Adult Health
DX: D69.3 Immune thrombocytopenic purpura (principal)
CPT/HCPCS: 36415; 85027

== ENCOUNTER 2022-05-30 15:53 | Outpatient (CLI) | payer OTHER, SELFPAY ==
[2022-05-30 12:22] LABS: HCT 39.1 % (36.0-46.0); HGB 13.3 g/dL (11.2-15.7); MCH 30.2 pg (27.0-33.0); MCV 89 fL (80-95); Platelet Count 177 10^3/uL (130-400); RBC 4.41 10^6/uL (3.93-5.22); RDW 12.8 % (11.7-14.6); RDW-SD 41.9 fL; WBC 6.71 10^3/uL (4.4-10.8)
== END 2022-05-30 15:54 | disposition home or self-care (01) ==
LOC: LBO 15:59
PROVIDERS: Visit Provider Nurse Practitioner Adult Health
DX: D69.3 Immune thrombocytopenic purpura (principal)
CPT/HCPCS: 36415; 85027; 85025

== ENCOUNTER 2022-08-01 03:23 | Outpatient (CLI) | payer OTHER, SELFPAY ==
[2022-08-01 13:02] LABS: HCT 38.7 % (36.0-46.0); HGB 13.4 g/dL (11.2-15.7); MCHC 34.6 % (32.0-36.0); MCV 87 fL (80-95); MPV 9.2 fL (8.0-11.0); RBC 4.47 10^6/uL (3.93-5.22); RDW 12.2 % (11.7-14.6); RDW-SD 38.9 fL; WBC 7.11 10^3/uL (4.4-10.8)
[2022-08-01 14:20] LABS: Platelet Count 93 10^3/uL (130-400)
== END 2022-08-01 03:24 | disposition home or self-care (01) ==
PROVIDERS: Visit Provider Nurse Practitioner Adult Health
DX: D69.3 Immune thrombocytopenic purpura (principal)
CPT/HCPCS: 36415; 85027

== ENCOUNTER 2022-08-17 11:32 | Outpatient (CLI) | payer OTHER, SELFPAY ==
[2022-08-17 08:18] LABS: HCT 39.1 % (36.0-46.0); HGB 13.4 g/dL (11.2-15.7); MCHC 34.3 % (32.0-36.0); MCV 88 fL (80-95); MPV 9.5 fL (8.0-11.0); RBC 4.46 10^6/uL (3.93-5.22); RDW-SD 38.7 fL; WBC 5.67 10^3/uL (4.4-10.8)
[2022-08-17 08:30] LABS: Platelet Count 87 10^3/uL (130-400)
== END 2022-08-17 11:33 | disposition home or self-care (01) ==
LOC: LBO 11:37
PROVIDERS: Visit Provider Internal Medicine Hematology & Oncology
DX: D69.3 Immune thrombocytopenic purpura (principal)
CPT/HCPCS: 36415; 85027

== ENCOUNTER 2022-08-27 02:27 | Outpatient (CLI) | payer OTHER, SELFPAY ==
[2022-08-27 15:03] LABS: HCT 39.2 % (36.0-46.0); HGB 13.3 g/dL (11.2-15.7); MCH 29.6 pg (27.0-33.0); MCHC 33.9 % (32.0-36.0); MCV 87 fL (80-95); MPV 9.8 fL (8.0-11.0); Platelet Count 101 10^3/uL (130-400); RDW 11.9 % (11.7-14.6); RDW-SD 38.2 fL; WBC 6.81 10^3/uL (4.4-10.8)
== END 2022-08-27 02:28 | disposition home or self-care (01) ==
PROVIDERS: Visit Provider Nurse Practitioner Adult Health
DX: D69.3 Immune thrombocytopenic purpura (principal)
CPT/HCPCS: 36415; 85027

== ENCOUNTER 2022-09-04 03:07 | Outpatient (CLI) | payer OTHER, SELFPAY ==
[2022-09-04 14:12] LABS: HCT 38.2 % (36.0-46.0); MCV 88 fL (80-95); MPV 9.9 fL (8.0-11.0); RBC 4.34 10^6/uL (3.93-5.22); RDW 11.9 % (11.7-14.6); RDW-SD 38.5 fL; WBC 8.01 10^3/uL (4.4-10.8)
[2022-09-04 14:55] LABS: Platelet Count 77 10^3/uL (130-400)
== END 2022-09-04 03:08 | disposition home or self-care (01) ==
LOC: LBO 03:08
PROVIDERS: Visit Provider Nurse Practitioner Adult Health
DX: D69.3 Immune thrombocytopenic purpura (principal)
CPT/HCPCS: 36415; 85027

== ENCOUNTER 2022-09-12 02:36 | Outpatient (CLI) | payer OTHER, SELFPAY ==
[2022-09-12 13:28] LABS: HCT 38.6 % (36.0-46.0); HGB 13.4 g/dL (11.2-15.7); MCH 30.1 pg (27.0-33.0); MCHC 34.7 % (32.0-36.0); MCV 87 fL (80-95); MPV 10.4 fL (8.0-11.0); RBC 4.45 10^6/uL (3.93-5.22); RDW-SD 38.3 fL; WBC 7.52 10^3/uL (4.4-10.8)
[2022-09-12 13:38] LABS: Platelet Count 61 10^3/uL (130-400)
== END 2022-09-12 02:37 | disposition home or self-care (01) ==
PROVIDERS: Visit Provider Nurse Practitioner Adult Health
DX: D69.3 Immune thrombocytopenic purpura (principal)
CPT/HCPCS: 36415; 85027

== ENCOUNTER 2022-09-18 02:49 | Outpatient (CLI) | payer OTHER, SELFPAY ==
[2022-09-18 13:56] LABS: Abs Immature Grans 0.02 10^3/uL (0.0-0.06); Absolute Basophil Count 0.04 10^3/uL (0.0-0.2); Absolute Eosinophil Count 0.35 10^3/uL (0.0-0.7); Absolute Lymphocyte Count 2.32 10^3/uL (1.2-3.4); Absolute Monocyte Count 0.52 10^3/uL (0.1-0.8); Absolute Neutrophil Count 3.48 10^3/uL (1.2-6.7); Basophils % 0.6; Eosinophils % 5.2; HGB 13.7 g/dL (11.2-15.7); Immature Grans % 0.3; Lymphocytes % 34.5; MCH 29.8 pg (27.0-33.0); MCHC 34.3 % (32.0-36.0); MCV 87 fL (80-95); MPV 10.5 fL (8.0-11.0); Monocytes % 7.7; Neutrophils % 51.7; RBC 4.59 10^6/uL (3.93-5.22); RDW 12.2 % (11.7-14.6); RDW-SD 38.7 fL; WBC 6.73 10^3/uL (4.4-10.8)
[2022-09-18 14:17] LABS: Diff Comment Diff Reviewed; Platelet Count 72 10^3/uL (130-400); RBC Morphology Normal
== END 2022-09-18 02:50 | disposition home or self-care (01) ==
PROVIDERS: Visit Provider Nurse Practitioner Adult Health
DX: D69.3 Immune thrombocytopenic purpura (principal)
CPT/HCPCS: 36415; 85025

== ENCOUNTER 2022-09-26 03:31 | Outpatient (CLI) | payer OTHER, SELFPAY ==
[2022-09-26 14:07] LABS: HGB 13.2 g/dL (11.2-15.7); MCH 29.9 pg (27.0-33.0); MCHC 34.7 % (32.0-36.0); MCV 86 fL (80-95); RBC 4.41 10^6/uL (3.93-5.22); RDW 11.9 % (11.7-14.6); RDW-SD 37.5 fL; WBC 7.59 10^3/uL (4.4-10.8)
[2022-09-26 14:24] LABS: Platelet Count 76 10^3/uL (130-400)
== END 2022-09-26 03:32 | disposition home or self-care (01) ==
PROVIDERS: Visit Provider Nurse Practitioner Adult Health
DX: D69.3 Immune thrombocytopenic purpura (principal)
CPT/HCPCS: 36415; 85027

== ENCOUNTER 2022-10-02 15:39 | Outpatient (CLI) | payer OTHER, SELFPAY ==
[2022-10-02 15:41] LABS: HCT 39.5 % (36.0-46.0); HGB 13.4 g/dL (11.2-15.7); MCH 29.5 pg (27.0-33.0); MCHC 33.9 % (32.0-36.0); MCV 87 fL (80-95); MPV 10.6 fL (8.0-11.0); Platelet Count 49 10^3/uL (130-400); RBC 4.55 10^6/uL (3.93-5.22); RDW 11.9 % (11.7-14.6); RDW-SD 37.6 fL; WBC 8.91 10^3/uL (4.4-10.8)
== END 2022-10-02 15:40 | disposition home or self-care (01) ==
LOC: LBO 15:39
PROVIDERS: Visit Provider Nurse Practitioner Adult Health
DX: D69.3 Immune thrombocytopenic purpura (principal)
CPT/HCPCS: 36415; 85027

== ENCOUNTER 2022-10-09 03:54 | Outpatient (CLI) | payer OTHER, SELFPAY ==
[2022-10-09 11:00] LABS: HCT 39.2 % (36.0-46.0); HGB 13.4 g/dL (11.2-15.7); MCH 29.7 pg (27.0-33.0); MCHC 34.2 % (32.0-36.0); MCV 87 fL (80-95); RBC 4.51 10^6/uL (3.93-5.22); RDW 12.2 % (11.7-14.6); RDW-SD 38.7 fL; WBC 7.34 10^3/uL (4.4-10.8)
[2022-10-09 11:21] LABS: Platelet Count 72 10^3/uL (130-400)
== END 2022-10-09 03:55 | disposition home or self-care (01) ==
PROVIDERS: PCP Nurse Practitioner Adult Health; Visit Provider Nurse Practitioner Adult Health
DX: D69.3 Immune thrombocytopenic purpura (principal)
CPT/HCPCS: 36415; 85027

== ENCOUNTER 2022-10-16 03:10 | Outpatient (CLI) | payer OTHER, SELFPAY ==
[2022-10-16 13:27] LABS: HCT 39.9 % (36.0-46.0); HGB 13.6 g/dL (11.2-15.7); MCHC 34.1 % (32.0-36.0); MCV 88 fL (80-95); MPV 10.3 fL (8.0-11.0); RDW 11.9 % (11.7-14.6); RDW-SD 38.5 fL; WBC 6.68 10^3/uL (4.4-10.8)
[2022-10-16 22:34] LABS: Platelet Count 66 10^3/uL (130-400)
[2022-10-16 22:35] LABS: RBC 4.54 10^6/uL (3.93-5.22)
== END 2022-10-16 03:11 | disposition home or self-care (01) ==
PROVIDERS: PCP Nurse Practitioner Adult Health; Visit Provider Nurse Practitioner Adult Health
DX: D69.3 Immune thrombocytopenic purpura (principal)
CPT/HCPCS: 36415; 85027

== ENCOUNTER 2022-10-24 03:29 | Outpatient (CLI) | payer OTHER, SELFPAY ==
[2022-10-24 14:52] LABS: HCT 37.4 % (36.0-46.0); HGB 12.8 g/dL (11.2-15.7); MCH 29.7 pg (27.0-33.0); MCHC 34.2 % (32.0-36.0); MCV 87 fL (80-95); MPV 10.1 fL (8.0-11.0); Platelet Count 53 10^3/uL (130-400); RBC 4.31 10^6/uL (3.93-5.22); RDW 12.1 % (11.7-14.6); RDW-SD 38.9 fL; WBC 6.62 10^3/uL (4.4-10.8)
== END 2022-10-24 03:30 | disposition home or self-care (01) ==
LOC: LBO 03:29
PROVIDERS: PCP Nurse Practitioner Adult Health; Visit Provider Nurse Practitioner Adult Health
DX: D69.3 Immune thrombocytopenic purpura (principal)
CPT/HCPCS: 36415; 85027

== ENCOUNTER 2022-10-31 02:52 | Outpatient (CLI) | payer OTHER, SELFPAY ==
[2022-10-31 11:54] LABS: HCT 38.4 % (36.0-46.0); HGB 13.4 g/dL (11.2-15.7); MCHC 34.9 % (32.0-36.0); MCV 86 fL (80-95); RBC 4.46 10^6/uL (3.93-5.22); RDW 12.2 % (11.7-14.6); RDW-SD 38.4 fL; WBC 6.94 10^3/uL (4.4-10.8)
[2022-10-31 12:05] LABS: Platelet Count 64 10^3/uL (130-400)
== END 2022-10-31 02:53 | disposition home or self-care (01) ==
PROVIDERS: PCP Nurse Practitioner Adult Health; Visit Provider Nurse Practitioner Adult Health
DX: D69.3 Immune thrombocytopenic purpura (principal)
CPT/HCPCS: 36415; 85027

== ENCOUNTER 2022-11-14 02:43 | Outpatient (CLI) | payer OTHER, SELFPAY ==
[2022-11-14 14:18] LABS: Abs Immature Grans 0.03 10^3/uL (0.0-0.06); Absolute Basophil Count 0.04 10^3/uL (0.0-0.2); Absolute Eosinophil Count 0.24 10^3/uL (0.0-0.7); Absolute Lymphocyte Count 1.93 10^3/uL (1.2-3.4); Absolute Neutrophil Count 4.75 10^3/uL (1.2-6.7); Basophils % 0.5; Eosinophils % 3.2; HCT 39.6 % (36.0-46.0); HGB 13.5 g/dL (11.2-15.7); Immature Grans % 0.4; Lymphocytes % 25.8; MCH 30.1 pg (27.0-33.0); MCHC 34.1 % (32.0-36.0); MCV 88 fL (80-95); MPV 10.2 fL (8.0-11.0); Monocytes % 6.7; Neutrophils % 63.4; RBC 4.49 10^6/uL (3.93-5.22); RDW 12.3 % (11.7-14.6); RDW-SD 39.5 fL; WBC 7.49 10^3/uL (4.4-10.8)
[2022-11-14 14:31] LABS: ALT 22 U/L (14-59); AST 18 U/L (15-37); Albumin 3.6 g/dL (3.4-5.0); Alkaline Phosphatase 79 U/L (46-116); Anion Gap 5.7 mmol/L (3-11); BUN 11 mg/dL (7-18); Bilirubin, Total 0.3 mg/dL (0.2-1.0); CO2 31.3 mmol/L (21.0-32.0); Calcium 8.6 mg/dL (8.5-10.1); Chloride 104 mmol/L (98-107); Estimated GFR 71.69 (mL/min/1.73m2); Glucose 88 mg/dL (74-106); Sodium 141 mmol/L (136-145); Total Protein 7.1 g/dL (6.4-8.2)
[2022-11-14 15:08] LABS: Platelet Count 54 10^3/uL (130-400); RBC Morphology Normal
== END 2022-11-14 02:44 | disposition home or self-care (01) ==
PROVIDERS: PCP Nurse Practitioner Adult Health; Visit Provider Internal Medicine Hematology & Oncology
DX: D69.3 Immune thrombocytopenic purpura (principal)
CPT/HCPCS: 36415; 80053; 85025

== ENCOUNTER 2022-11-28 04:15 | Outpatient (CLI) | payer OTHER, SELFPAY ==
[2022-11-28 10:52] LABS: HCT 40.4 % (36.0-46.0); HGB 13.8 g/dL (11.2-15.7); MCH 29.9 pg (27.0-33.0); MCHC 34.2 % (32.0-36.0); MCV 87 fL (80-95); MPV 10.3 fL (8.0-11.0); RBC 4.62 10^6/uL (3.93-5.22); RDW 12.3 % (11.7-14.6); RDW-SD 39.2 fL; WBC 7.16 10^3/uL (4.4-10.8)
[2022-11-28 11:31] LABS: Platelet Count 90 10^3/uL (130-400)
== END 2022-11-28 04:16 | disposition home or self-care (01) ==
PROVIDERS: PCP Nurse Practitioner Adult Health; Visit Provider Nurse Practitioner Adult Health
DX: D69.3 Immune thrombocytopenic purpura (principal); D64.9 Anemia, unspecified
CPT/HCPCS: 36415; 85027

== ENCOUNTER 2022-12-12 03:28 | Outpatient (CLI) | payer OTHER, SELFPAY ==
[2022-12-12 11:45] LABS: Abs Immature Grans 0.05 10^3/uL (0.0-0.06); Absolute Basophil Count 0.04 10^3/uL (0.0-0.2); Absolute Eosinophil Count 0.26 10^3/uL (0.0-0.7); Absolute Lymphocyte Count 2.08 10^3/uL (1.2-3.4); Absolute Monocyte Count 0.57 10^3/uL (0.1-0.8); Absolute Neutrophil Count 5.24 10^3/uL (1.2-6.7); Basophils % 0.5; Eosinophils % 3.2; HCT 40.4 % (36.0-46.0); HGB 13.8 g/dL (11.2-15.7); Immature Grans % 0.6; Lymphocytes % 25.2; MCH 29.9 pg (27.0-33.0); MCHC 34.2 % (32.0-36.0); MCV 88 fL (80-95); MPV 9.9 fL (8.0-11.0); Monocytes % 6.9; Neutrophils % 63.6; RBC 4.61 10^6/uL (3.93-5.22); RDW 12.4 % (11.7-14.6); RDW-SD 39.8 fL; WBC 8.24 10^3/uL (4.4-10.8)
[2022-12-12 12:05] LABS: ALT 25 U/L (14-59); AST 22 U/L (15-37); Albumin 3.7 g/dL (3.4-5.0); Alkaline Phosphatase 77 U/L (46-116); Anion Gap 5.8 mmol/L (3-11); BUN 12 mg/dL (7-18); Bilirubin, Total 0.4 mg/dL (0.2-1.0); CO2 30.2 mmol/L (21.0-32.0); CREATININE 0.8 mg/dL (0.55-1.02); Chloride 103 mmol/L (98-107); Glucose 95 mg/dL (74-106); Potassium 4.1 mmol/L (3.5-5.1); Sodium 139 mmol/L (136-145); Total Protein 7.2 g/dL (6.4-8.2)
[2022-12-12 12:10] LABS: Platelet Count 67 10^3/uL (130-400)
[2022-12-12 12:11] LABS: Diff Comment PLT Morph Reviewed; RBC Morphology Normal
== END 2022-12-12 03:29 | disposition home or self-care (01) ==
PROVIDERS: PCP Nurse Practitioner Adult Health; Visit Provider Internal Medicine Hematology & Oncology
DX: D69.3 Immune thrombocytopenic purpura (principal)
CPT/HCPCS: 36415; 80053; 85025

== ENCOUNTER 2022-12-26 02:52 | Outpatient (CLI) | payer OTHER, SELFPAY ==
[2022-12-26 11:05] LABS: Abs Immature Grans 0.02 10^3/uL (0.0-0.06); Absolute Basophil Count 0.04 10^3/uL (0.0-0.2); Absolute Eosinophil Count 0.29 10^3/uL (0.0-0.7); Absolute Lymphocyte Count 1.95 10^3/uL (1.2-3.4); Absolute Monocyte Count 0.59 10^3/uL (0.1-0.8); Absolute Neutrophil Count 3.72 10^3/uL (1.2-6.7); Basophils % 0.6; Eosinophils % 4.4; HCT 39.6 % (36.0-46.0); HGB 13.6 g/dL (11.2-15.7); Immature Grans % 0.3; Lymphocytes % 29.5; MCH 29.8 pg (27.0-33.0); MCHC 34.3 % (32.0-36.0); MCV 87 fL (80-95); MPV 9.8 fL (8.0-11.0); Monocytes % 8.9; Neutrophils % 56.3; RBC 4.57 10^6/uL (3.93-5.22); RDW 12.4 % (11.7-14.6); RDW-SD 39.2 fL; WBC 6.61 10^3/uL (4.4-10.8)
[2022-12-26 11:28] LABS: Diff Comment Diff Reviewed; Platelet Count 95 10^3/uL (130-400); RBC Morphology Normal
[2022-12-26 12:10] LABS: ALT 18 U/L (14-59); AST 16 U/L (15-37); Albumin 3.7 g/dL (3.4-5.0); Alkaline Phosphatase 70 U/L (46-116); BUN 14 mg/dL (7-18); Bilirubin, Total 0.4 mg/dL (0.2-1.0); CREATININE 0.8 mg/dL (0.55-1.02); Calcium 9.1 mg/dL (8.5-10.1); Chloride 106 mmol/L (98-107); Glucose 94 mg/dL (74-106); Potassium 4.3 mmol/L (3.5-5.1); Sodium 142 mmol/L (136-145); Total Protein 7.1 g/dL (6.4-8.2)
== END 2022-12-26 02:53 | disposition home or self-care (01) ==
PROVIDERS: PCP Nurse Practitioner Adult Health; Visit Provider Internal Medicine Hematology & Oncology
DX: D69.3 Immune thrombocytopenic purpura (principal)
CPT/HCPCS: 36415; 80053; 85025

== ENCOUNTER 2023-01-09 01:50 | Outpatient (CLI) | payer OTHER, SELFPAY ==
[2023-01-09 11:40] LABS: Abs Immature Grans 0.01 10^3/uL (0.0-0.06); Absolute Basophil Count 0.05 10^3/uL (0.0-0.2); Absolute Eosinophil Count 0.25 10^3/uL (0.0-0.7); Absolute Lymphocyte Count 2.12 10^3/uL (1.2-3.4); Absolute Monocyte Count 0.57 10^3/uL (0.1-0.8); Absolute Neutrophil Count 3.57 10^3/uL (1.2-6.7); Basophils % 0.8; Eosinophils % 3.8; HCT 39.5 % (36.0-46.0); HGB 13.4 g/dL (11.2-15.7); Immature Grans % 0.2; Lymphocytes % 32.3; MCH 29.6 pg (27.0-33.0); MCHC 33.9 % (32.0-36.0); MCV 87 fL (80-95); MPV 9.9 fL (8.0-11.0); Monocytes % 8.7; Neutrophils % 54.2; RBC 4.52 10^6/uL (3.93-5.22); RDW 12.1 % (11.7-14.6); RDW-SD 39.2 fL; WBC 6.57 10^3/uL (4.4-10.8)
[2023-01-09 11:59] LABS: ALT 16 U/L (14-59); AST 16 U/L (15-37); Albumin 3.7 g/dL (3.4-5.0); Alkaline Phosphatase 74 U/L (46-116); Anion Gap 8.3 mmol/L (3-11); BUN 12 mg/dL (7-18); Bilirubin, Total 0.4 mg/dL (0.2-1.0); CO2 29.7 mmol/L (21.0-32.0); CREATININE 0.8 mg/dL (0.55-1.02); Calcium 9.3 mg/dL (8.5-10.1); Chloride 104 mmol/L (98-107); Glucose 97 mg/dL (74-106); Potassium 4.5 mmol/L (3.5-5.1); Sodium 142 mmol/L (136-145); Total Protein 7.1 g/dL (6.4-8.2)
[2023-01-09 12:59] LABS: Platelet Count 59 10^3/uL (130-400)
== END 2023-01-09 01:51 | disposition home or self-care (01) ==
PROVIDERS: PCP Nurse Practitioner Adult Health; Visit Provider Internal Medicine Hematology & Oncology
DX: D69.3 Immune thrombocytopenic purpura (principal)
CPT/HCPCS: 36415; 80053; 85025

== ENCOUNTER 2023-02-06 02:53 | Outpatient (CLI) | payer OTHER, SELFPAY ==
[2023-02-06 12:31] LABS: Abs Immature Grans 0.01 10^3/uL (0.0-0.06); Absolute Basophil Count 0.05 10^3/uL (0.0-0.2); Absolute Eosinophil Count 0.29 10^3/uL (0.0-0.7); Absolute Monocyte Count 0.62 10^3/uL (0.1-0.8); Absolute Neutrophil Count 3.12 10^3/uL (1.2-6.7); Basophils % 0.8; Eosinophils % 4.6; HCT 39.3 % (36.0-46.0); HGB 13.5 g/dL (11.2-15.7); Immature Grans % 0.2; MCH 29.7 pg (27.0-33.0); MCHC 34.4 % (32.0-36.0); MCV 87 fL (80-95); Monocytes % 9.9; Neutrophils % 49.5; RBC 4.54 10^6/uL (3.93-5.22); RDW 12.1 % (11.7-14.6); RDW-SD 38.5 fL; WBC 6.29 10^3/uL (4.4-10.8)
[2023-02-06 12:47] LABS: Diff Comment PLT Morph Reviewed; Platelet Count 74 10^3/uL (130-400); RBC Morphology Normal
[2023-02-06 13:16] LABS: ALT 21 U/L (14-59); AST 16 U/L (15-37); Albumin 3.7 g/dL (3.4-5.0); Alkaline Phosphatase 86 U/L (46-116); Anion Gap 9.7 mmol/L (3-11); BUN 13 mg/dL (7-18); Bilirubin, Total 0.3 mg/dL (0.2-1.0); CO2 25.3 mmol/L (21.0-32.0); CREATININE 0.8 mg/dL (0.55-1.02); Calcium 9.1 mg/dL (8.5-10.1); Chloride 102 mmol/L (98-107); Glucose 106 mg/dL (74-106); Sodium 137 mmol/L (136-145); Total Protein 7.3 g/dL (6.4-8.2)
== END 2023-02-06 02:54 | disposition home or self-care (01) ==
PROVIDERS: PCP Nurse Practitioner Adult Health; Visit Provider Internal Medicine Hematology & Oncology
DX: D69.3 Immune thrombocytopenic purpura (principal)
CPT/HCPCS: 36415; 80053; 85025

== ENCOUNTER 2023-03-06 03:38 | Outpatient (CLI) | payer OTHER, SELFPAY ==
[2023-03-06 11:56] LABS: Abs Immature Grans 0.02 10^3/uL (0.0-0.06); Absolute Basophil Count 0.05 10^3/uL (0.0-0.2); Absolute Eosinophil Count 0.28 10^3/uL (0.0-0.7); Absolute Lymphocyte Count 2.25 10^3/uL (1.2-3.4); Absolute Monocyte Count 0.48 10^3/uL (0.1-0.8); Basophils % 0.7; Eosinophils % 3.8; HGB 13.9 g/dL (11.2-15.7); Immature Grans % 0.3; Lymphocytes % 30.5; MCH 29.5 pg (27.0-33.0); MCHC 33.9 % (32.0-36.0); MCV 87 fL (80-95); MPV 9.9 fL (8.0-11.0); Monocytes % 6.5; Neutrophils % 58.2; Platelet Count 109 10^3/uL (130-400); RBC 4.71 10^6/uL (3.93-5.22); RDW 12.3 % (11.7-14.6); RDW-SD 39.3 fL; WBC 7.38 10^3/uL (4.4-10.8)
[2023-03-06 12:16] LABS: ALT 21 U/L (14-59); AST 18 U/L (15-37); Alkaline Phosphatase 71 U/L (46-116); Anion Gap 3.4 mmol/L (3-11); BUN 13 mg/dL (7-18); Bilirubin, Total 0.3 mg/dL (0.2-1.0); CO2 30.6 mmol/L (21.0-32.0); CREATININE 0.8 mg/dL (0.55-1.02); Calcium 9.6 mg/dL (8.5-10.1); Chloride 102 mmol/L (98-107); Glucose 101 mg/dL (74-106); Potassium 4.4 mmol/L (3.5-5.1); Sodium 136 mmol/L (136-145); Total Protein 7.7 g/dL (6.4-8.2)
== END 2023-03-06 03:39 | disposition home or self-care (01) ==
PROVIDERS: PCP Internal Medicine Hematology & Oncology; Referring Provider Internal Medicine Hematology & Oncology; Visit Provider Internal Medicine Hematology & Oncology
DX: D69.3 Immune thrombocytopenic purpura (principal)
CPT/HCPCS: 80053; 85025

== ENCOUNTER 2023-04-03 03:36 | Outpatient (CLI) | payer OTHER, SELFPAY ==
[2023-04-03 12:45] LABS: Abs Immature Grans 0.03 10^3/uL (0.0-0.06); Absolute Basophil Count 0.05 10^3/uL (0.0-0.2); Absolute Eosinophil Count 0.25 10^3/uL (0.0-0.7); Absolute Lymphocyte Count 2.23 10^3/uL (1.2-3.4); Absolute Monocyte Count 0.52 10^3/uL (0.1-0.8); Absolute Neutrophil Count 4.54 10^3/uL (1.2-6.7); Basophils % 0.7; Eosinophils % 3.3; HCT 38.3 % (36.0-46.0); HGB 13.2 g/dL (11.2-15.7); Immature Grans % 0.4; Lymphocytes % 29.3; MCH 29.5 pg (27.0-33.0); MCHC 34.5 % (32.0-36.0); MCV 86 fL (80-95); MPV 10.7 fL (8.0-11.0); Monocytes % 6.8; Neutrophils % 59.5; Platelet Count 76 10^3/uL (130-400); RBC 4.48 10^6/uL (3.93-5.22); RDW 11.9 % (11.7-14.6); RDW-SD 37.6 fL; WBC 7.62 10^3/uL (4.4-10.8)
[2023-04-03 13:18] LABS: ALT 21 U/L (14-59); AST 17 U/L (15-37); Albumin 3.6 g/dL (3.4-5.0); Alkaline Phosphatase 78 U/L (46-116); Anion Gap 9.1 mmol/L (3-11); BUN 13 mg/dL (7-18); Bilirubin, Total 0.4 mg/dL (0.2-1.0); CO2 26.9 mmol/L (21.0-32.0); CREATININE 0.8 mg/dL (0.55-1.02); Chloride 103 mmol/L (98-107); Glucose 95 mg/dL (74-106); Potassium 3.7 mmol/L (3.5-5.1); Sodium 139 mmol/L (136-145); Total Protein 7.2 g/dL (6.4-8.2)
== END 2023-04-03 03:37 | disposition home or self-care (01) ==
LOC: LBO 03:38
PROVIDERS: PCP Internal Medicine Hematology & Oncology; Visit Provider Internal Medicine Hematology & Oncology
DX: D69.3 Immune thrombocytopenic purpura (principal)
CPT/HCPCS: 36415; 80053; 85025

== ENCOUNTER 2023-05-08 09:39 | Emergency (ER) | payer OTHER, SELFPAY ==
--- NOTE | 2023-05-08 09:41 | ED.GENADUL_ITS ---
Discharge Plan Disposition Patient Disposition: Home Discharge Details Clinical Impression: URI (upper respiratory infection) Primary Care Provider: Kathryn Aguilar ED Provider: Huy Lipscomb Home Meds and New Rx's Prescriptions: New cetirizine 10 mg tablet 10 mg PO DAILY PRNQty: 7 0RF benzonatate 100 mg capsule 100 mg PO BID PRNQty: 7 0RF Continued escitalopram oxalate 20 mg tablet 20 mg PO DAILY albuterol sulfate [ProAir HFA] 90 mcg/actuation Hfa Aerosol Inhaler 2 puff Inhalation Q4H PRN PRN Mirena 21 mcg/24 hours (8 yrs) 52 mg intrauterine device 1 device intrauterine ONCE Rx Instructions: as a single dose Discharge Instructions Additional Instructions: You were seen in the emergency department for your cough and sore throat. You will receive a call back if your viral swab returns positive. Your chest x-ray showed no sign of any pneumonia. Please follow-up as we discussed next week with your primary care provider. Please return to the emergency department if you have difficulty breathing cannot eat or drink as result of nausea or vomiting or if you have any other concerns. Discharge Data Discharge Date/Time-TO BE ENTERED AT DEPARTURE: 05/08/23 10:39 HPI General Date/Time Provider Initiated Documentation: 05/08/23 09:41 . HPI Narrative: MDM This is an overall very well-appearing normothermic and not tachycardic 42-year-old female with URI symptoms subjective fever concerning for the possibi lity of viral URI versus early pneumonia for which patient will undergo chest x- ray. Patient has a modified Centor score of less than 1 so will defer strep swab at this point in time. Patient is nontoxic-appearing so doubt bacterial tracheitis. Handling secretions with no tripoding so doubt epiglottitis. Patient does have history of reactive airway disease for which she uses an inhaler but has no significant wheezes to suggest benefit from nebulized albuterol. No pain out of proportion to suggest necrotizing soft tissue infection. Good range of motion in the neck so I am not concerned for retropharyngeal abscess. Uvula midline so I doubt peritonsillar abscess. No mastoid tenderness to suggest mastoiditis. Bilateral TMs clear so doubt acute otitis media. Patient not a diabetic not a smoker so in the absence of immunocompromise doubt opportunistic infection. No recent travel to suggest atypical infection. No chest pain to suggest ACS. Patient is PERC negative I did not send a D-dimer is exceedingly low for PE in the absence of chest pain. Will send rapid COVID and influenza and if negative will reflex to PCR. 10:31 AM Patient had a reassuring negative chest x-ray. Her COVID swab and RSV and influenza swabs are still pending. I advised I would call her if these are positive. Otherwise we will proceed with empiric trial of expectant outpatient management. I advised patient to return to the emergency department if she developed difficulty breathing could not eat or drink as result of nausea or vomiting or if he develops any chest pain. She understood her return indication and will call her primary care provider for follow-up. 4 PM Negative respiratory viral panel. Chronic conditions affecting the care of the patient: N/A History obtained from an outside historian: N/A External record review: [facility] EMR [Diagnostic interpretations performed by me: Per my independent interpretation chest x-ray shows: Medications: Acetaminophen Flonase, cetirizine, benzoate Social determinants of health affecting disposition: N/A Management discussed with: N/A Treatment/interventions considered: N/A Response to therapies provided: Improved symptoms in the ED HPI This is a 42-year-old female with a remote prior history of pneumonia arrived to the emergency department via private vehicle in the setting of chest congestion cough chills and sore throat for the past approximately 2 weeks. Patient works locally. She swabbed herself with a home COVID test 2 days ago and this was negative. She has intermittently had a sore throat. She had a cough with a runny nose. She denies any nausea or vomiting. She has not had any chest pain. She denies history of diabetes. No routine tobacco. Patient denies IV drug use. She does not drink every day. Subjectively felt warm but has not documented a fever. [facility]. Exam General: Well-appearing in no acute distress speaking in complete sentences. Head: Normocephalic, atraumatic. Eye: Extraocular eye movements intact. No conjunctival injection. No scleral icterus. Ear, nose, mouth, throat: Grossly normal inspection. Normal voice, handling secretions normally. Bilateral TMs clear. Uvula midline. No significant posterior oropharynx erythema. No tonsillar exudates. No mastoid tenderness. Neck: Trachea midline.Good range of motion in neck. Cardiovascular: Well-perfused distal extremities. Regular rate and rhythm. Respiratory: Nonlabored respiration. No wheezes. Clear lungs bilaterally. Gastrointestinal: Nondistended abdomen. Musculoskeletal: No edema. Moving all 4 extremities spontaneously. Skin: Normal for age and race, grossly normal temperature and turgor. No acute rash. Neurologic: Alert and appropriate, no apparent acute deficits. Psychiatric: Mood and manner are appropriate. Grooming and personal hygiene are appropriate. Related Data Home Medications Medication Instructions Recorded Confirmed albuterol sulfate 90 mcg/actuation 2 puff inhalation Q4H PRN PRN 04/06/18 05/08/23 aerosol inhaler (ProAir HFA) escitalopram oxalate 20 mg tablet 20 mg PO DAILY 11/21/21 05/08/23 benzonatate 100 mg capsule 100 mg PO BID PRN #7 caps 05/08/23 cetirizine 10 mg tablet 10 mg PO DAILY PRN #7 tabs 05/08/23 levonorgestrel 21 mcg/24 hours (8 1 device intrauterine ONCE 05/08/23 05/08/23 yrs) 52 mg intrauterine device (Mirena) Previous Rx's Medication Instructions Recorded benzonatate 100 mg capsule 100 mg PO BID PRN #7 caps 05/08/23 cetirizine 10 mg tablet 10 mg PO DAILY PRN #7 tabs 05/08/23 Allergies Allergy/AdvReac Type Severity Reaction Status Date / Time No Known Allergies Allergy Unverified 05/08/23 09:45 General JULIO CESAR: 3 PFSH All Active Problems (Updated 05/08/23 @ 10:34 by Huy Lipscomb MD) URI (upper respiratory infection) (Acute) Normal colonoscopy (Acute) Anemia (Chronic) Medical History (Updated 05/08/23 @ 10:34 by Huy Lipscomb MD) ITP (idiopathic thrombocytopenic purpura) Seen at [facility], no transfusions. Diagnosed 2006 Depression stopped Citalopram with 2015 . Did not resume. 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 Molluscum contagiosum vulvar. noted at time of colpo 04/2016. Surgical History (Updated 01/16/22 @ 07:48 by Tiara Hinojosa RN) History of colonoscopy (~12/2021) wisdom tooth extraction section (01/27/16) PCD for non-reassuring FHR. TonieGentry [facility]. Biopsy, Lymph Node Family History Mother Breast cancer 42 Maternal Grandfather Prostate cancer Maternal Aunt Breast cancer Lung cancer Maternal Cousin Non-Hodgkin lymphoma Maternal Great Aunt No problems noted. Maternal Great Aunt Colon cancer Maternal Great Aunt Lung cancer Maternal Great Aunt Asthma Maternal Great Grandmother Melanoma Maternal Great Grandfather Lung cancer Social History Smoking/Tobacco Use Status: Former Tobacco Use Quit Date: 05/13/14 Smoking risk assessment performed?: Yes Alcohol Intake: current Alcohol Intake frequency: holidays/special occasions only Drug use: Never Substance use type: does not use Current gender identity: female Do you feel safe at home: Yes Do you feel safe in your relationship?: Yes
[2023-05-08 09:43] VITALS: BP 133/74; PULSE 84; RESP 18; TEMP 36.7; O2SAT 99
[2023-05-08 09:51] VITALS: BP 133/74; PULSE 84; RESP 18; TEMP 36.7; O2SAT 99
[2023-05-08] MEDS: Acetaminophen 500 MG TAB 1000 MG PO (10:05)
[2023-05-08] MEDS: Fluticasone NASAL SPRAY 16 GM BTL NS (10:05)
[2023-05-08] MEDS: Cetirizine 10 MG TAB PO (10:05)
[2023-05-08] MEDS: Benzonatate 100 MG CAP PO (10:05)
--- NOTE | 2023-05-08 10:17 | DI.RAD_ITS ---
Exam(s) XR PORTABLE CHEST AP EXAM: XR PORTABLE CHEST AP CLINICAL HISTORY: Cough subjective fever. TECHNIQUE: 2D digital imaging was performed. COMPARISON: CR CHEST 2 VIEWS PA,LAT from 04/23/2017 FINDINGS: Single AP portable view. Heart size is upper normal. The mediastinum is not widened. Lungs are clear. No infiltrates nor obvious pleural effusions. IMPRESSION: No acute pulmonary findings on this single AP portable view of the chest. DATA REPOSITORY: RADIATION DOSE DELIVERED:
[2023-05-08 10:57] LABS: COVID-19 PCR Negative (Negative); Influenza A PCR Negative (Negative); Influenza B PCR Negative (Negative); RSV PCR Negative (Negative)
[2023-05-08 11:04] LABS: Source Nasopharynx
== END 2023-05-08 10:39 | disposition home or self-care (01) ==
PROVIDERS: Emergency Provider Emergency Medicine; PCP Internal Medicine Hematology & Oncology
DX: J06.9 Acute upper respiratory infection, unspecified (principal); Z11.52 Encounter for screening for COVID-19; Z87.891 Personal history of nicotine dependence
CPT/HCPCS: 87637; 99283; 71045

== ENCOUNTER 2023-06-24 05:02 | Outpatient (CLI) | payer OTHER, SELFPAY ==
[2023-06-24 13:38] LABS: Abs Immature Grans 0.02 10^3/uL (0.0-0.06); Absolute Basophil Count 0.04 10^3/uL (0.0-0.2); Absolute Eosinophil Count 0.25 10^3/uL (0.0-0.7); Absolute Lymphocyte Count 2.51 10^3/uL (1.2-3.4); Absolute Monocyte Count 0.61 10^3/uL (0.1-0.8); Absolute Neutrophil Count 4.14 10^3/uL (1.2-6.7); Basophils % 0.5; Eosinophils % 3.3; HCT 37.6 % (36.0-46.0); Immature Grans % 0.3; Lymphocytes % 33.2; MCH 29.3 pg (27.0-33.0); MCHC 34.6 % (32.0-36.0); MCV 85 fL (80-95); MPV 9.9 fL (8.0-11.0); Monocytes % 8.1; Neutrophils % 54.6; RBC 4.43 10^6/uL (3.93-5.22); RDW 12.3 % (11.7-14.6); RDW-SD 37.6 fL; WBC 7.57 10^3/uL (4.4-10.8)
[2023-06-24 13:54] LABS: ALT 21 U/L (14-59); AST 14 U/L (15-37); Albumin 3.5 g/dL (3.4-5.0); Alkaline Phosphatase 81 U/L (46-116); Anion Gap 10.7 mmol/L (3-11); BUN 12 mg/dL (7-18); Bilirubin, Total 0.3 mg/dL (0.2-1.0); CO2 25.3 mmol/L (21.0-32.0); CREATININE 0.7 mg/dL (0.55-1.02); Chloride 103 mmol/L (98-107); Glucose 98 mg/dL (74-106); Sodium 139 mmol/L (136-145); Total Protein 7.1 g/dL (6.4-8.2)
[2023-06-24 14:22] LABS: Platelet Count 67 10^3/uL (130-400)
== END 2023-06-24 05:03 | disposition home or self-care (01) ==
PROVIDERS: PCP Internal Medicine Hematology & Oncology; Visit Provider Internal Medicine Hematology & Oncology
DX: D69.3 Immune thrombocytopenic purpura (principal)
CPT/HCPCS: 36415; 80053; 85025

== ENCOUNTER 2023-09-25 05:00 | Outpatient (CLI) | payer OTHER, SELFPAY ==
[2023-09-25 09:00] LABS: Abs Immature Grans 0.03 10^3/uL (0.0-0.06); Absolute Basophil Count 0.03 10^3/uL (0.0-0.2); Absolute Eosinophil Count 0.33 10^3/uL (0.0-0.7); Absolute Monocyte Count 0.49 10^3/uL (0.1-0.8); Absolute Neutrophil Count 5.08 10^3/uL (1.2-6.7); Basophils % 0.4 %; Eosinophils % 4.1 %; HGB 13.9 g/dL (11.2-15.7); Immature Grans % 0.4 %; Lymphocytes % 26.1 %; MCH 29.6 pg (27.0-33.0); MCHC 33.9 % (32.0-36.0); MCV 87 fL (80-95); MPV 10.8 fL (8.0-11.0); Monocytes % 6.1 %; Neutrophils % 62.9 %; RBC 4.69 10^6/uL (3.93-5.22); RDW 12.3 % (11.7-14.6); RDW-SD 39.4 fL; WBC 8.06 10^3/uL (4.4-10.8)
[2023-09-25 09:18] LABS: ALT 26 U/L (14-59); AST 15 U/L (15-37); Albumin 3.7 g/dL (3.4-5.0); Alkaline Phosphatase 71 U/L (46-116); Anion Gap 10.1 mmol/L (3-11); BUN 12 mg/dL (7-18); Bilirubin, Total 0.4 mg/dL (0.2-1.0); CO2 25.9 mmol/L (21.0-32.0); CREATININE 0.8 mg/dL (0.55-1.02); Chloride 106 mmol/L (98-107); Estimated GFR 93.12 (mL/min/1.73m2); Glucose 90 mg/dL (74-106); Potassium 4.3 mmol/L (3.5-5.1); Sodium 142 mmol/L (136-145); Total Protein 7.1 g/dL (6.4-8.2)
[2023-09-25 09:21] LABS: Diff Comment Diff Reviewed; Platelet Count 42 10^3/uL (130-400); RBC Morphology Normal
== END 2023-09-25 05:01 | disposition home or self-care (01) ==
LOC: LBO 05:00
PROVIDERS: PCP Internal Medicine Hematology & Oncology; Visit Provider Internal Medicine Hematology & Oncology
DX: D69.3 Immune thrombocytopenic purpura (principal)
CPT/HCPCS: 36415; 80053; 85025

== ENCOUNTER 2023-10-23 19:56 | Outpatient (CLI) | payer OTHER, SELFPAY ==
[2023-10-23 15:03] LABS: Abs Immature Grans 0.04 10^3/uL (0.0-0.06); Absolute Basophil Count 0.04 10^3/uL (0.0-0.2); Absolute Eosinophil Count 0.22 10^3/uL (0.0-0.7); Absolute Lymphocyte Count 2.39 10^3/uL (1.2-3.4); Absolute Monocyte Count 0.48 10^3/uL (0.1-0.8); Absolute Neutrophil Count 5.71 10^3/uL (1.2-6.7); Basophils % 0.5 %; Eosinophils % 2.5 %; HCT 40.2 % (36.0-46.0); HGB 13.6 g/dL (11.2-15.7); Immature Grans % 0.5 %; Lymphocytes % 26.9 %; MCH 29.6 pg (27.0-33.0); MCHC 33.8 % (32.0-36.0); MCV 88 fL (80-95); MPV 11.3 fL (8.0-11.0); Monocytes % 5.4 %; Neutrophils % 64.2 %; RBC 4.59 10^6/uL (3.93-5.22); RDW 12.1 % (11.7-14.6); RDW-SD 38.7 fL; WBC 8.88 10^3/uL (4.4-10.8)
[2023-10-23 15:20] LABS: Platelet Count 37 10^3/uL (130-400)
[2023-10-23 15:23] LABS: ALT 27 U/L (14-59); AST 18 U/L (15-37); Albumin 3.8 g/dL (3.4-5.0); Alkaline Phosphatase 70 U/L (46-116); Anion Gap 7.1 mmol/L (3-11); BUN 7 mg/dL (7-18); Bilirubin, Total 0.4 mg/dL (0.2-1.0); CO2 28.9 mmol/L (21.0-32.0); CREATININE 0.8 mg/dL (0.55-1.02); Calcium 9.1 mg/dL (8.5-10.1); Chloride 103 mmol/L (98-107); Estimated GFR 93.12 (mL/min/1.73m2); Glucose 93 mg/dL (74-106); Potassium 4.1 mmol/L (3.5-5.1); Sodium 139 mmol/L (136-145); Total Protein 7.2 g/dL (6.4-8.2)
== END 2023-10-23 19:57 | disposition home or self-care (01) ==
LOC: LBO 19:57
PROVIDERS: PCP Internal Medicine Hematology & Oncology; Visit Provider Internal Medicine Hematology & Oncology
DX: D69.3 Immune thrombocytopenic purpura (principal)
CPT/HCPCS: 36415; 80053; 85025

== ENCOUNTER 2023-11-06 01:39 | Outpatient (CLI) | payer OTHER, SELFPAY ==
[2023-11-06 09:29] LABS: Abs Immature Grans 0.02 10^3/uL (0.0-0.06); Absolute Basophil Count 0.03 10^3/uL (0.0-0.2); Absolute Eosinophil Count 0.22 10^3/uL (0.0-0.7); Absolute Lymphocyte Count 1.82 10^3/uL (1.2-3.4); Absolute Monocyte Count 0.58 10^3/uL (0.1-0.8); Absolute Neutrophil Count 4.35 10^3/uL (1.2-6.7); Basophils % 0.4 %; Eosinophils % 3.1 %; HCT 38.7 % (36.0-46.0); HGB 13.4 g/dL (11.2-15.7); Immature Grans % 0.3 %; Lymphocytes % 25.9 %; MCHC 34.6 % (32.0-36.0); MCV 87 fL (80-95); MPV 11.1 fL (8.0-11.0); Monocytes % 8.3 %; RBC 4.47 10^6/uL (3.93-5.22); RDW 12.4 % (11.7-14.6); RDW-SD 39.1 fL; WBC 7.02 10^3/uL (4.4-10.8)
[2023-11-06 09:45] LABS: Platelet Count 34 10^3/uL (130-400)
[2023-11-06 09:46] LABS: Diff Comment Diff Reviewed; RBC Morphology Normal
[2023-11-06 09:48] LABS: ALT 39 U/L (14-59); AST 26 U/L (15-37); Albumin 3.4 g/dL (3.4-5.0); Alkaline Phosphatase 62 U/L (46-116); Anion Gap 7.8 mmol/L (3-11); BUN 9 mg/dL (7-18); Bilirubin, Total 0.55 mg/dL (0.2-1.0); CO2 27.2 mmol/L (21.0-32.0); CREATININE 0.8 mg/dL (0.55-1.02); Calcium 8.9 mg/dL (8.5-10.1); Chloride 105 mmol/L (98-107); Estimated GFR 93.12 (mL/min/1.73m2); Glucose 103 mg/dL (74-106); Sodium 140 mmol/L (136-145); Total Protein 6.8 g/dL (6.4-8.2)
== END 2023-11-06 01:40 | disposition home or self-care (01) ==
LOC: LBO 01:39
PROVIDERS: PCP Internal Medicine Hematology & Oncology; Visit Provider Internal Medicine Hematology & Oncology
DX: D69.3 Immune thrombocytopenic purpura (principal)
CPT/HCPCS: 36415; 80053; 85025

== ENCOUNTER 2023-11-13 02:36 | Outpatient (CLI) | payer OTHER, SELFPAY ==
[2023-11-13 11:20] LABS: HCT 40.9 % (36.0-46.0); HGB 13.9 g/dL (11.2-15.7); MCH 29.6 pg (27.0-33.0); MCV 87 fL (80-95); MPV 10.9 fL (8.0-11.0); RDW 12.6 % (11.7-14.6); RDW-SD 39.9 fL; WBC 6.13 10^3/uL (4.4-10.8)
[2023-11-13 11:43] LABS: Platelet Count 36 10^3/uL (130-400)
[2023-11-13 14:37] LABS: Abs Immature Grans 0.03 10^3/uL (0.0-0.06); Absolute Basophil Count 0.03 10^3/uL (0.0-0.2); Absolute Eosinophil Count 0.23 10^3/uL (0.0-0.7); Absolute Lymphocyte Count 1.96 10^3/uL (1.2-3.4); Absolute Monocyte Count 0.56 10^3/uL (0.1-0.8); Absolute Neutrophil Count 3.29 10^3/uL (1.2-6.7); Basophils % 0.5 %; Eosinophils % 3.8 %; Immature Grans % 0.5 %; Lymphocytes % 32.1 %; Monocytes % 9.2 %; Neutrophils % 53.9 %
== END 2023-11-13 02:37 | disposition home or self-care (01) ==
PROVIDERS: PCP Internal Medicine Hematology & Oncology; Visit Provider Internal Medicine Hematology & Oncology
DX: D69.3 Immune thrombocytopenic purpura (principal)
CPT/HCPCS: 36415; 85027; 85007

== ENCOUNTER 2023-11-20 02:34 | Outpatient (CLI) | payer OTHER, SELFPAY ==
[2023-11-20 14:23] LABS: Abs Immature Grans 0.13 10^3/uL (0.0-0.06); Absolute Basophil Count 0.03 10^3/uL (0.0-0.2); Absolute Eosinophil Count 0.34 10^3/uL (0.0-0.7); Absolute Lymphocyte Count 3.51 10^3/uL (1.2-3.4); Absolute Monocyte Count 0.71 10^3/uL (0.1-0.8); Absolute Neutrophil Count 5.67 10^3/uL (1.2-6.7); Basophils % 0.3 %; Eosinophils % 3.3 %; HCT 41.4 % (36.0-46.0); HGB 14.1 g/dL (11.2-15.7); Immature Grans % 1.3 %; Lymphocytes % 33.8 %; MCH 29.9 pg (27.0-33.0); MCHC 34.1 % (32.0-36.0); MCV 88 fL (80-95); MPV 9.6 fL (8.0-11.0); Monocytes % 6.8 %; Neutrophils % 54.5 %; Platelet Count 230 10^3/uL (130-400); RBC 4.72 10^6/uL (3.93-5.22); RDW 12.6 % (11.7-14.6); RDW-SD 40.6 fL; WBC 10.39 10^3/uL (4.4-10.8)
== END 2023-11-20 02:35 | disposition home or self-care (01) ==
PROVIDERS: PCP Internal Medicine Hematology & Oncology; Visit Provider Internal Medicine Hematology & Oncology
DX: D69.3 Immune thrombocytopenic purpura (principal)
CPT/HCPCS: 36415; 85025

== ENCOUNTER 2023-11-27 03:57 | Outpatient (CLI) | payer OTHER, SELFPAY ==
[2023-11-27 14:14] LABS: Abs Immature Grans 0.05 10^3/uL (0.0-0.06); Absolute Basophil Count 0.03 10^3/uL (0.0-0.2); Absolute Eosinophil Count 0.17 10^3/uL (0.0-0.7); Absolute Monocyte Count 0.62 10^3/uL (0.1-0.8); Basophils % 0.3 %; Eosinophils % 1.5 %; HCT 39.7 % (36.0-46.0); HGB 13.6 g/dL (11.2-15.7); Immature Grans % 0.4 %; Lymphocytes % 18.4 %; MCH 30.1 pg (27.0-33.0); MCHC 34.3 % (32.0-36.0); MCV 88 fL (80-95); MPV 9.8 fL (8.0-11.0); Monocytes % 5.4 %; Platelet Count 196 10^3/uL (130-400); RBC 4.52 10^6/uL (3.93-5.22); RDW 12.7 % (11.7-14.6); RDW-SD 40.9 fL; WBC 11.39 10^3/uL (4.4-10.8)
[2023-11-27 14:15] LABS: Absolute Neutrophil Count 8.43 10^3/uL (1.2-6.7)
== END 2023-11-27 03:58 | disposition home or self-care (01) ==
LOC: LBO 03:57
PROVIDERS: PCP Internal Medicine Hematology & Oncology; Visit Provider Internal Medicine Hematology & Oncology
DX: D69.3 Immune thrombocytopenic purpura (principal)
CPT/HCPCS: 36415; 85025

== ENCOUNTER 2023-12-04 12:16 | Outpatient (CLI) | payer OTHER, SELFPAY ==
[2023-12-04 10:10] LABS: Abs Immature Grans 0.02 10^3/uL (0.0-0.06); Absolute Basophil Count 0.05 10^3/uL (0.0-0.2); Absolute Eosinophil Count 0.23 10^3/uL (0.0-0.7); Absolute Lymphocyte Count 1.53 10^3/uL (1.2-3.4); Absolute Monocyte Count 0.59 10^3/uL (0.1-0.8); Absolute Neutrophil Count 5.24 10^3/uL (1.2-6.7); Basophils % 0.7 %; HGB 13.3 g/dL (11.2-15.7); Immature Grans % 0.3 %; MCV 86 fL (80-95); MPV 9.5 fL (8.0-11.0); Monocytes % 7.7 %; Neutrophils % 68.3 %; Platelet Count 165 10^3/uL (130-400); RBC 4.43 10^6/uL (3.93-5.22); RDW 12.5 % (11.7-14.6); RDW-SD 39.3 fL; WBC 7.66 10^3/uL (4.4-10.8)
== END 2023-12-04 12:17 | disposition home or self-care (01) ==
LOC: LBO 12:17
PROVIDERS: PCP Internal Medicine Hematology & Oncology; Visit Provider Internal Medicine Hematology & Oncology
DX: D69.3 Immune thrombocytopenic purpura (principal)
CPT/HCPCS: 36415; 85025

== ENCOUNTER 2023-12-11 02:29 | Outpatient (CLI) | payer OTHER, SELFPAY ==
[2023-12-11 09:42] LABS: Abs Immature Grans 0.29 10^3/uL (0.0-0.06); Absolute Basophil Count 0.05 10^3/uL (0.0-0.2); Absolute Eosinophil Count 0.35 10^3/uL (0.0-0.7); Absolute Lymphocyte Count 3.65 10^3/uL (1.2-3.4); Absolute Monocyte Count 1.01 10^3/uL (0.1-0.8); Absolute Neutrophil Count 6.71 10^3/uL (1.2-6.7); Basophils % 0.4 %; Eosinophils % 2.9 %; HCT 42.9 % (36.0-46.0); HGB 14.7 g/dL (11.2-15.7); Immature Grans % 2.4 %; Lymphocytes % 30.3 %; MCH 30.2 pg (27.0-33.0); MCHC 34.3 % (32.0-36.0); MCV 88 fL (80-95); Monocytes % 8.4 %; Neutrophils % 55.6 %; Platelet Count 253 10^3/uL (130-400); RBC 4.87 10^6/uL (3.93-5.22); RDW 12.6 % (11.7-14.6); RDW-SD 40.2 fL; WBC 12.06 10^3/uL (4.4-10.8)
== END 2023-12-11 02:30 | disposition home or self-care (01) ==
PROVIDERS: PCP Internal Medicine Hematology & Oncology; Visit Provider Internal Medicine Hematology & Oncology
DX: D69.3 Immune thrombocytopenic purpura (principal)
CPT/HCPCS: 36415; 85025

== ENCOUNTER 2023-12-25 11:14 | Outpatient (CLI) | payer OTHER, SELFPAY ==
[2023-12-25 09:39] LABS: Abs Immature Grans 0.01 10^3/uL (0.0-0.06); Absolute Basophil Count 0.03 10^3/uL (0.0-0.2); Absolute Eosinophil Count 0.05 10^3/uL (0.0-0.7); Absolute Lymphocyte Count 1.37 10^3/uL (1.2-3.4); Absolute Monocyte Count 0.59 10^3/uL (0.1-0.8); Absolute Neutrophil Count 3.15 10^3/uL (1.2-6.7); Basophils % 0.6 %; HCT 40.4 % (36.0-46.0); Immature Grans % 0.2 %; Lymphocytes % 26.3 %; MCHC 34.7 % (32.0-36.0); MCV 87 fL (80-95); MPV 8.7 fL (8.0-11.0); Monocytes % 11.3 %; Neutrophils % 60.6 %; Platelet Count 220 10^3/uL (130-400); RBC 4.66 10^6/uL (3.93-5.22); RDW 12.7 % (11.7-14.6); RDW-SD 39.8 fL
== END 2023-12-25 11:15 | disposition home or self-care (01) ==
LOC: LBO 11:16
PROVIDERS: PCP Internal Medicine Hematology & Oncology; Visit Provider Internal Medicine Hematology & Oncology
DX: D69.3 Immune thrombocytopenic purpura (principal)
CPT/HCPCS: 36415; 85025

== ENCOUNTER 2024-01-01 03:15 | Outpatient (CLI) | payer OTHER, SELFPAY ==
[2024-01-01 14:16] LABS: Abs Immature Grans 0.16 10^3/uL (0.0-0.06); Absolute Basophil Count 0.04 10^3/uL (0.0-0.2); Absolute Eosinophil Count 0.28 10^3/uL (0.0-0.7); Absolute Lymphocyte Count 3.24 10^3/uL (1.2-3.4); Absolute Neutrophil Count 4.51 10^3/uL (1.2-6.7); Basophils % 0.4 %; Eosinophils % 3.1 %; HCT 40.4 % (36.0-46.0); Immature Grans % 1.8 %; Lymphocytes % 36.3 %; MCH 30.4 pg (27.0-33.0); MCHC 34.7 % (32.0-36.0); MCV 88 fL (80-95); MPV 9.2 fL (8.0-11.0); Monocytes % 7.8 %; Neutrophils % 50.6 %; Platelet Count 308 10^3/uL (130-400); RBC 4.61 10^6/uL (3.93-5.22); RDW 12.7 % (11.7-14.6); WBC 8.93 10^3/uL (4.4-10.8)
== END 2024-01-01 03:16 | disposition home or self-care (01) ==
PROVIDERS: PCP Internal Medicine Hematology & Oncology; Visit Provider Internal Medicine Hematology & Oncology
DX: D69.3 Immune thrombocytopenic purpura (principal)
CPT/HCPCS: 36415; 85025

== ENCOUNTER 2024-01-15 17:00 | Outpatient (CLI) | payer OTHER, SELFPAY ==
[2024-01-15 15:59] LABS: Abs Immature Grans 0.04 10^3/uL (0.0-0.06); Absolute Basophil Count 0.04 10^3/uL (0.0-0.2); Absolute Lymphocyte Count 2.52 10^3/uL (1.2-3.4); Absolute Monocyte Count 0.71 10^3/uL (0.1-0.8); Absolute Neutrophil Count 5.46 10^3/uL (1.2-6.7); Basophils % 0.4 %; Eosinophils % 2.2 %; HCT 39.1 % (36.0-46.0); HGB 13.4 g/dL (11.2-15.7); Immature Grans % 0.4 %; Lymphocytes % 28.1 %; MCH 30.6 pg (27.0-33.0); MCHC 34.3 % (32.0-36.0); MCV 89 fL (80-95); MPV 8.5 fL (8.0-11.0); Monocytes % 7.9 %; Platelet Count 237 10^3/uL (130-400); RBC 4.38 10^6/uL (3.93-5.22); RDW 13.2 % (11.7-14.6); RDW-SD 41.8 fL; WBC 8.97 10^3/uL (4.4-10.8)
== END 2024-01-15 17:01 | disposition home or self-care (01) ==
LOC: LBO 17:03
PROVIDERS: PCP Internal Medicine Hematology & Oncology; Visit Provider Nurse Practitioner Adult Health
DX: D69.3 Immune thrombocytopenic purpura (principal)
CPT/HCPCS: 36415; 85025

== ENCOUNTER 2024-02-10 03:27 | Outpatient (CLI) | payer OTHER, SELFPAY ==
[2024-02-10 11:48] LABS: Abs Immature Grans 0.05 10^3/uL (0.0-0.06); Absolute Basophil Count 0.05 10^3/uL (0.0-0.2); Absolute Monocyte Count 0.46 10^3/uL (0.1-0.8); Absolute Neutrophil Count 3.51 10^3/uL (1.2-6.7); Basophils % 0.8 %; Eosinophils % 6.5 %; HCT 37.9 % (36.0-46.0); HGB 13.2 g/dL (11.2-15.7); Immature Grans % 0.8 %; Lymphocytes % 27.6 %; MCHC 34.8 % (32.0-36.0); MCV 89 fL (80-95); MPV 9.1 fL (8.0-11.0); Monocytes % 7.5 %; Neutrophils % 56.8 %; Platelet Count 247 10^3/uL (130-400); RBC 4.26 10^6/uL (3.93-5.22); RDW 13.4 % (11.7-14.6); RDW-SD 44.3 fL; WBC 6.17 10^3/uL (4.4-10.8)
== END 2024-02-10 03:28 | disposition home or self-care (01) ==
PROVIDERS: PCP Internal Medicine Hematology & Oncology; Visit Provider Nurse Practitioner Adult Health
DX: D69.3 Immune thrombocytopenic purpura (principal)
CPT/HCPCS: 36415; 85025

== ENCOUNTER 2024-03-25 02:22 | Outpatient (CLI) | payer OTHER, SELFPAY ==
[2024-03-25 11:41] LABS: Abs Immature Grans 0.02 10^3/uL (0.0-0.06); Absolute Basophil Count 0.04 10^3/uL (0.0-0.2); Absolute Eosinophil Count 0.31 10^3/uL (0.0-0.7); Absolute Lymphocyte Count 1.96 10^3/uL (1.2-3.4); Absolute Monocyte Count 0.51 10^3/uL (0.1-0.8); Absolute Neutrophil Count 3.93 10^3/uL (1.2-6.7); Basophils % 0.6 %; Eosinophils % 4.6 %; HCT 40.4 % (36.0-46.0); HGB 13.7 g/dL (11.2-15.7); Immature Grans % 0.3 %; MCH 30.7 pg (27.0-33.0); MCHC 33.9 % (32.0-36.0); MCV 91 fL (80-95); MPV 10.1 fL (8.0-11.0); Monocytes % 7.5 %; RBC 4.46 10^6/uL (3.93-5.22); RDW 11.9 % (11.7-14.6); RDW-SD 39.5 fL; WBC 6.77 10^3/uL (4.4-10.8)
[2024-03-25 12:11] LABS: Platelet Count 59 10^3/uL (130-400)
[2024-03-25 12:22] LABS: ALT 18 U/L (14-59); AST 17 U/L (15-37); Albumin 3.6 g/dL (3.4-5.0); Alkaline Phosphatase 77 U/L (46-116); BUN 13 mg/dL (7-18); Bilirubin, Total 0.34 mg/dL (0.2-1.0); CREATININE 0.9 mg/dL (0.55-1.02); Calcium 9.3 mg/dL (8.5-10.1); Chloride 106 mmol/L (98-107); Estimated GFR 80.84 (mL/min/1.73m2); Glucose 84 mg/dL (74-106); Potassium 4.2 mmol/L (3.5-5.1); Sodium 143 mmol/L (136-145)
== END 2024-03-25 02:23 | disposition home or self-care (01) ==
PROVIDERS: PCP Internal Medicine Hematology & Oncology; Visit Provider Nurse Practitioner Adult Health
DX: D69.3 Immune thrombocytopenic purpura (principal)
CPT/HCPCS: 36415; 80053; 85025

== ENCOUNTER 2024-03-31 03:02 | Outpatient (CLI) | payer OTHER, SELFPAY ==
[2024-03-31 11:20] LABS: Abs Immature Grans 0.24 10^3/uL (0.0-0.06); Absolute Basophil Count 0.06 10^3/uL (0.0-0.2); Absolute Eosinophil Count 0.19 10^3/uL (0.0-0.7); Absolute Lymphocyte Count 4.56 10^3/uL (1.2-3.4); Absolute Monocyte Count 0.91 10^3/uL (0.1-0.8); Absolute Neutrophil Count 4.57 10^3/uL (1.2-6.7); Basophils % 0.6 %; Eosinophils % 1.8 %; HCT 43.6 % (36.0-46.0); HGB 14.6 g/dL (11.2-15.7); Immature Grans % 2.3 %; Lymphocytes % 43.3 %; MCH 30.5 pg (27.0-33.0); MCHC 33.5 % (32.0-36.0); MCV 91 fL (80-95); MPV 9.4 fL (8.0-11.0); Monocytes % 8.6 %; Neutrophils % 43.4 %; Platelet Count 247 10^3/uL (130-400); RBC 4.79 10^6/uL (3.93-5.22); RDW 11.9 % (11.7-14.6); RDW-SD 39.8 fL; WBC 10.53 10^3/uL (4.4-10.8)
== END 2024-03-31 03:03 | disposition home or self-care (01) ==
PROVIDERS: PCP Internal Medicine Hematology & Oncology; Visit Provider Internal Medicine Hematology & Oncology
DX: D69.3 Immune thrombocytopenic purpura (principal)
CPT/HCPCS: 36415; 85025

== ENCOUNTER 2024-04-07 02:12 | Outpatient (CLI) | payer OTHER, SELFPAY ==
[2024-04-07 10:21] LABS: Abs Immature Grans 0.05 10^3/uL (0.0-0.06); Absolute Basophil Count 0.03 10^3/uL (0.0-0.2); Absolute Eosinophil Count 0.11 10^3/uL (0.0-0.7); Absolute Lymphocyte Count 2.05 10^3/uL (1.2-3.4); Absolute Monocyte Count 0.73 10^3/uL (0.1-0.8); Absolute Neutrophil Count 6.83 10^3/uL (1.2-6.7); Basophils % 0.3 %; Eosinophils % 1.1 %; HCT 40.3 % (36.0-46.0); HGB 13.8 g/dL (11.2-15.7); Immature Grans % 0.5 %; Lymphocytes % 20.9 %; MCH 30.7 pg (27.0-33.0); MCHC 34.2 % (32.0-36.0); MCV 90 fL (80-95); Monocytes % 7.4 %; Neutrophils % 69.8 %; Platelet Count 227 10^3/uL (130-400); RDW 11.8 % (11.7-14.6); RDW-SD 38.3 fL
[2024-04-07 10:37] LABS: ALT 31 U/L (14-59); AST 16 U/L (15-37); Albumin 3.4 g/dL (3.4-5.0); Alkaline Phosphatase 79 U/L (46-116); Anion Gap 8.8 mmol/L (3-11); BUN 12 mg/dL (7-18); Bilirubin, Total 0.29 mg/dL (0.2-1.0); CO2 27.2 mmol/L (21.0-32.0); CREATININE 0.8 mg/dL (0.55-1.02); Calcium 8.7 mg/dL (8.5-10.1); Chloride 105 mmol/L (98-107); Estimated GFR 93.12 (mL/min/1.73m2); Glucose 108 mg/dL (74-106); Potassium 4.1 mmol/L (3.5-5.1); Sodium 141 mmol/L (136-145); Total Protein 6.8 g/dL (6.4-8.2)
[2024-04-07 17:56] LABS: HBs Antibody, Quant 63.1 mIU/mL (See Note); Hepatitis B Surface Ab Positive (See Note)
[2024-04-07 18:09] LABS: Hepatitis B Surface Ag Negative (Negative)
[2024-04-07 18:41] LABS: Hep B Core Antibody Negative (Negative); Hepatitis C Ab w Rflx HCV PCR Negative (Negative)
[2024-04-07 18:42] LABS: HIV-1/2 Ag & Ab Screen Negative (Negative)
== END 2024-04-07 02:13 | disposition home or self-care (01) ==
PROVIDERS: PCP Internal Medicine Hematology & Oncology; Visit Provider Internal Medicine Hematology & Oncology
DX: D69.3 Immune thrombocytopenic purpura (principal)
CPT/HCPCS: 36415; 80053; 86704; 86706; 86803; 87340; 87389; 85025

== ENCOUNTER 2024-04-20 01:45 | Outpatient (CLI) | payer OTHER, SELFPAY ==
--- NOTE | 2024-04-20 | DI.DEXA_ITS ---
Exam(s) XR DEXA BONE DENSITY W/WO [place]LAH EXAM: XR DEXA BONE DENSITY W/WO [place]LAH CLINICAL HISTORY: ITP, D69.3, [id number] TECHNIQUE: Routine DEXA evaluation of the lumbar spine, hip, or forearm. COMPARISON: No exams were available for comparison FINDINGS: Performed on a Hologic unit. Lateral image: No compression fracture evident. Lumbar Spine total T-score: 1.9 Hip total T-score:0.9 Independent reading at the level of the femoral neck yields T-score of 0.6 Forearm total T-score: 0.0 IMPRESSION: Bone mineral density measures in the normal range. Fracture risk is low Note: Any spine fracture indicates 5x risk for subsequent spine fracture and 2x risk for subsequent h ip fracture. World Health Organization criteria for BMD interpretation classify patients: Normal...... T- Score at or above -1.0 Osteopenic... T- Score between -1.0 and -2.5 Osteoporosis... T-Score at or below -2.5
== END 2024-04-20 02:05 ==
PROVIDERS: PCP Internal Medicine Hematology & Oncology; Visit Provider Internal Medicine
DX: D69.3 Immune thrombocytopenic purpura (principal); M85.89 Other specified disorders of bone density and structure, multiple sites
CPT/HCPCS: 77080

== ENCOUNTER 2024-04-20 10:54 | Outpatient (CLI) | payer OTHER, SELFPAY ==
[2024-04-20 11:00] LABS: Abs Immature Grans 0.03 10^3/uL (0.0-0.06); Absolute Basophil Count 0.03 10^3/uL (0.0-0.2); Absolute Eosinophil Count 0.22 10^3/uL (0.0-0.7); Absolute Lymphocyte Count 1.25 10^3/uL (1.2-3.4); Absolute Monocyte Count 0.43 10^3/uL (0.1-0.8); Absolute Neutrophil Count 3.93 10^3/uL (1.2-6.7); Basophils % 0.5 %; Eosinophils % 3.7 %; HCT 41.5 % (36.0-46.0); HGB 14.3 g/dL (11.2-15.7); Immature Grans % 0.5 %; Lymphocytes % 21.2 %; MCH 30.1 pg (27.0-33.0); MCHC 34.5 % (32.0-36.0); MCV 87 fL (80-95); MPV 8.8 fL (8.0-11.0); Monocytes % 7.3 %; Neutrophils % 66.8 %; Platelet Count 202 10^3/uL (130-400); RBC 4.75 10^6/uL (3.93-5.22); RDW 12.2 % (11.7-14.6); WBC 5.89 10^3/uL (4.4-10.8)
== END 2024-04-20 10:55 | disposition home or self-care (01) ==
LOC: LBO 10:54
PROVIDERS: PCP Internal Medicine Hematology & Oncology; Visit Provider Nurse Practitioner Adult Health
DX: D69.3 Immune thrombocytopenic purpura (principal)
CPT/HCPCS: 36415; 85025

== ENCOUNTER 2024-04-22 15:26 | Outpatient (CLI) | payer OTHER, SELFPAY ==
[2024-04-22 15:39] LABS: Abs Immature Grans 0.03 10^3/uL (0.0-0.06); Absolute Basophil Count 0.02 10^3/uL (0.0-0.2); Absolute Eosinophil Count 0.15 10^3/uL (0.0-0.7); Absolute Lymphocyte Count 1.19 10^3/uL (1.2-3.4); Absolute Monocyte Count 0.53 10^3/uL (0.1-0.8); Absolute Neutrophil Count 4.03 10^3/uL (1.2-6.7); Basophils % 0.3 %; Eosinophils % 2.5 %; HCT 39.2 % (36.0-46.0); HGB 13.7 g/dL (11.2-15.7); Immature Grans % 0.5 %; MCHC 34.9 % (32.0-36.0); MCV 89 fL (80-95); MPV 9.1 fL (8.0-11.0); Monocytes % 8.9 %; Neutrophils % 67.8 %; Platelet Count 177 10^3/uL (130-400); RBC 4.42 10^6/uL (3.93-5.22); RDW 12.1 % (11.7-14.6); RDW-SD 39.6 fL; WBC 5.95 10^3/uL (4.4-10.8)
[2024-04-22 15:40] LABS: ESR 11 mm/hr (0-20)
[2024-04-22 15:54] LABS: ALT 28 U/L (14-59); AST 27 U/L (15-37); Albumin 3.3 g/dL (3.4-5.0); Alkaline Phosphatase 72 U/L (46-116); Anion Gap 6.4 mmol/L (3-11); BUN 8 mg/dL (7-18); Bilirubin, Total 0.35 mg/dL (0.2-1.0); C-Reactive Protein 6.84 mg/dL (<or=0.5); CO2 29.6 mmol/L (21.0-32.0); CREATININE 0.8 mg/dL (0.55-1.02); Calcium 9.1 mg/dL (8.5-10.1); Chloride 104 mmol/L (98-107); Estimated GFR 93.12 (mL/min/1.73m2); Glucose 95 mg/dL (74-106); Potassium 3.9 mmol/L (3.5-5.1); Sodium 140 mmol/L (136-145)
[2024-04-24 10:25] LABS: IgA 149 mg/dL (85-499); IgG 680 mg/dL (610-1616); IgM 50 mg/dL (35-242)
== END 2024-04-22 15:27 | disposition home or self-care (01) ==
LOC: LBO 15:30
PROVIDERS: PCP Internal Medicine Hematology & Oncology; Referring Provider Internal Medicine Hematology & Oncology; Visit Provider Internal Medicine Hematology & Oncology
DX: D69.3 Immune thrombocytopenic purpura (principal); T80.69XA Other serum reaction due to other serum, initial encounter
CPT/HCPCS: 36415; 80053; 82784; 85652; 85025; 86140

== ENCOUNTER 2024-04-27 13:19 | Outpatient (CLI) | payer OTHER, SELFPAY ==
[2024-04-27 11:19] LABS: Abs Immature Grans 0.02 10^3/uL (0.0-0.06); Absolute Basophil Count 0.03 10^3/uL (0.0-0.2); Absolute Eosinophil Count 0.14 10^3/uL (0.0-0.7); Absolute Monocyte Count 0.61 10^3/uL (0.1-0.8); Absolute Neutrophil Count 3.32 10^3/uL (1.2-6.7); Basophils % 0.5 %; Eosinophils % 2.4 %; HCT 38.6 % (36.0-46.0); HGB 13.6 g/dL (11.2-15.7); Immature Grans % 0.3 %; Lymphocytes % 29.2 %; MCH 30.8 pg (27.0-33.0); MCHC 35.2 % (32.0-36.0); MCV 87 fL (80-95); MPV 8.9 fL (8.0-11.0); Monocytes % 10.5 %; Neutrophils % 57.1 %; Platelet Count 295 10^3/uL (130-400); RBC 4.42 10^6/uL (3.93-5.22); RDW-SD 38.2 fL; WBC 5.82 10^3/uL (4.4-10.8)
== END 2024-04-27 13:20 | disposition home or self-care (01) ==
LOC: LBO 13:21
PROVIDERS: PCP Internal Medicine Hematology & Oncology; Visit Provider Internal Medicine Hematology & Oncology
DX: D69.3 Immune thrombocytopenic purpura (principal); T80.69XA Other serum reaction due to other serum, initial encounter
CPT/HCPCS: 36415; 85025

== ENCOUNTER 2024-05-04 12:16 | Outpatient (CLI) | payer OTHER, SELFPAY ==
[2024-05-04 13:51] LABS: Abs Immature Grans 0.02 10^3/uL (0.0-0.06); Absolute Basophil Count 0.03 10^3/uL (0.0-0.2); Absolute Eosinophil Count 0.27 10^3/uL (0.0-0.7); Absolute Lymphocyte Count 1.48 10^3/uL (1.2-3.4); Absolute Monocyte Count 0.67 10^3/uL (0.1-0.8); Absolute Neutrophil Count 3.45 10^3/uL (1.2-6.7); Basophils % 0.5 %; Eosinophils % 4.6 %; HCT 40.1 % (36.0-46.0); HGB 13.8 g/dL (11.2-15.7); Immature Grans % 0.3 %; MCH 30.5 pg (27.0-33.0); MCHC 34.4 % (32.0-36.0); MCV 89 fL (80-95); MPV 9.7 fL (8.0-11.0); Monocytes % 11.3 %; Neutrophils % 58.3 %; Platelet Count 358 10^3/uL (130-400); RBC 4.53 10^6/uL (3.93-5.22); RDW 12.5 % (11.7-14.6); WBC 5.92 10^3/uL (4.4-10.8)
== END 2024-05-04 12:17 | disposition home or self-care (01) ==
PROVIDERS: PCP Internal Medicine Hematology & Oncology; Visit Provider Nurse Practitioner Adult Health
DX: D69.3 Immune thrombocytopenic purpura (principal)
CPT/HCPCS: 36415; 85025

== ENCOUNTER 2024-05-11 15:06 | Outpatient (CLI) | payer OTHER, SELFPAY ==
[2024-05-11 14:24] LABS: Abs Immature Grans 0.02 10^3/uL (0.0-0.06); Absolute Basophil Count 0.04 10^3/uL (0.0-0.2); Absolute Eosinophil Count 0.23 10^3/uL (0.0-0.7); Absolute Lymphocyte Count 1.58 10^3/uL (1.2-3.4); Absolute Monocyte Count 0.61 10^3/uL (0.1-0.8); Absolute Neutrophil Count 4.07 10^3/uL (1.2-6.7); Basophils % 0.6 %; Eosinophils % 3.5 %; HCT 36.7 % (36.0-46.0); HGB 12.7 g/dL (11.2-15.7); Immature Grans % 0.3 %; Lymphocytes % 24.1 %; MCH 30.7 pg (27.0-33.0); MCHC 34.6 % (32.0-36.0); MCV 89 fL (80-95); MPV 8.8 fL (8.0-11.0); Monocytes % 9.3 %; Neutrophils % 62.2 %; Platelet Count 317 10^3/uL (130-400); RBC 4.14 10^6/uL (3.93-5.22); RDW 12.9 % (11.7-14.6); RDW-SD 41.6 fL; WBC 6.55 10^3/uL (4.4-10.8)
== END 2024-05-11 15:07 | disposition home or self-care (01) ==
LOC: LBO 15:15
PROVIDERS: PCP Internal Medicine Hematology & Oncology; Visit Provider Internal Medicine Hematology & Oncology
DX: D69.3 Immune thrombocytopenic purpura (principal)
CPT/HCPCS: 36415; 85025

== ENCOUNTER 2024-05-20 10:53 | Outpatient (CLI) | payer OTHER, SELFPAY ==
[2024-05-20 10:29] LABS: Abs Immature Grans 0.02 10^3/uL (0.0-0.06); Absolute Basophil Count 0.04 10^3/uL (0.0-0.2); Absolute Eosinophil Count 0.42 10^3/uL (0.0-0.7); Absolute Monocyte Count 0.73 10^3/uL (0.1-0.8); Absolute Neutrophil Count 6.05 10^3/uL (1.2-6.7); Basophils % 0.5 %; Eosinophils % 4.8 %; HCT 39.9 % (36.0-46.0); HGB 13.7 g/dL (11.2-15.7); Immature Grans % 0.2 %; Lymphocytes % 17.1 %; MCH 30.4 pg (27.0-33.0); MCHC 34.3 % (32.0-36.0); MCV 89 fL (80-95); MPV 8.9 fL (8.0-11.0); Monocytes % 8.3 %; Neutrophils % 69.1 %; Platelet Count 262 10^3/uL (130-400); RDW-SD 42.4 fL; WBC 8.76 10^3/uL (4.4-10.8)
== END 2024-05-20 10:54 | disposition home or self-care (01) ==
LOC: LBO 11:04
PROVIDERS: PCP Internal Medicine Hematology & Oncology; Visit Provider Nurse Practitioner Adult Health
DX: D69.3 Immune thrombocytopenic purpura (principal)
CPT/HCPCS: 36415; 85025

== ENCOUNTER 2024-06-03 01:53 | Outpatient (CLI) | payer OTHER, SELFPAY ==
[2024-06-03 09:23] LABS: Abs Immature Grans 0.04 10^3/uL (0.0-0.06); Absolute Basophil Count 0.05 10^3/uL (0.0-0.2); Absolute Lymphocyte Count 1.67 10^3/uL (1.2-3.4); Absolute Monocyte Count 0.74 10^3/uL (0.1-0.8); Absolute Neutrophil Count 6.84 10^3/uL (1.2-6.7); Basophils % 0.5 %; Eosinophils % 3.1 %; HCT 41.1 % (36.0-46.0); Immature Grans % 0.4 %; Lymphocytes % 17.3 %; MCH 30.2 pg (27.0-33.0); MCHC 34.1 % (32.0-36.0); MCV 89 fL (80-95); MPV 8.6 fL (8.0-11.0); Monocytes % 7.7 %; Platelet Count 339 10^3/uL (130-400); RBC 4.64 10^6/uL (3.93-5.22); RDW 12.6 % (11.7-14.6); RDW-SD 40.8 fL; WBC 9.64 10^3/uL (4.4-10.8)
== END 2024-06-03 01:54 | disposition home or self-care (01) ==
PROVIDERS: PCP Internal Medicine Hematology & Oncology; Visit Provider Nurse Practitioner Adult Health
DX: D69.3 Immune thrombocytopenic purpura (principal)
CPT/HCPCS: 36415; 85025

== ENCOUNTER 2024-06-17 01:09 | Outpatient (CLI) | payer OTHER, SELFPAY ==
[2024-06-17 09:05] LABS: Abs Immature Grans 0.02 10^3/uL (0.0-0.06); Absolute Basophil Count 0.02 10^3/uL (0.0-0.2); Absolute Eosinophil Count 0.28 10^3/uL (0.0-0.7); Absolute Lymphocyte Count 1.49 10^3/uL (1.2-3.4); Absolute Monocyte Count 0.72 10^3/uL (0.1-0.8); Absolute Neutrophil Count 3.36 10^3/uL (1.2-6.7); Basophils % 0.3 %; Eosinophils % 4.8 %; HCT 40.3 % (36.0-46.0); HGB 13.7 g/dL (11.2-15.7); Immature Grans % 0.3 %; Lymphocytes % 25.3 %; MCH 30.5 pg (27.0-33.0); MCV 90 fL (80-95); MPV 8.9 fL (8.0-11.0); Monocytes % 12.2 %; Neutrophils % 57.1 %; Platelet Count 301 10^3/uL (130-400); RBC 4.49 10^6/uL (3.93-5.22); RDW 12.4 % (11.7-14.6); RDW-SD 41.1 fL; WBC 5.89 10^3/uL (4.4-10.8)
== END 2024-06-17 01:10 | disposition home or self-care (01) ==
PROVIDERS: PCP Internal Medicine Hematology & Oncology; Visit Provider Nurse Practitioner Adult Health
DX: D69.3 Immune thrombocytopenic purpura (principal)
CPT/HCPCS: 36415; 85025

== ENCOUNTER 2024-07-08 03:19 | Outpatient (CLI) | payer OTHER, SELFPAY ==
[2024-07-08 09:37] LABS: Abs Immature Grans 0.02 10^3/uL (0.0-0.06); Absolute Basophil Count 0.03 10^3/uL (0.0-0.2); Absolute Eosinophil Count 0.39 10^3/uL (0.0-0.7); Absolute Lymphocyte Count 1.54 10^3/uL (1.2-3.4); Absolute Monocyte Count 0.72 10^3/uL (0.1-0.8); Absolute Neutrophil Count 3.73 10^3/uL (1.2-6.7); Basophils % 0.5 %; Eosinophils % 6.1 %; HCT 40.2 % (36.0-46.0); HGB 13.6 g/dL (11.2-15.7); Immature Grans % 0.3 %; MCH 30.4 pg (27.0-33.0); MCHC 33.8 % (32.0-36.0); MCV 90 fL (80-95); Monocytes % 11.2 %; Neutrophils % 57.9 %; Platelet Count 292 10^3/uL (130-400); RBC 4.48 10^6/uL (3.93-5.22); RDW 12.4 % (11.7-14.6); RDW-SD 40.8 fL; WBC 6.43 10^3/uL (4.4-10.8)
== END 2024-07-08 03:20 | disposition home or self-care (01) ==
PROVIDERS: PCP Internal Medicine Hematology & Oncology; Visit Provider Nurse Practitioner Adult Health
DX: D69.3 Immune thrombocytopenic purpura (principal)
CPT/HCPCS: 36415; 85025

== ENCOUNTER 2024-08-12 10:19 | Outpatient (CLI) | payer OTHER, SELFPAY ==
[2024-08-12 09:14] LABS: Abs Immature Grans 0.01 10^3/uL (0.0-0.06); Absolute Basophil Count 0.02 10^3/uL (0.0-0.2); Absolute Eosinophil Count 0.11 10^3/uL (0.0-0.7); Absolute Monocyte Count 0.71 10^3/uL (0.1-0.8); Absolute Neutrophil Count 1.28 10^3/uL (1.2-6.7); Basophils % 0.6 %; Eosinophils % 3.5 %; HCT 41.2 % (36.0-46.0); HGB 14.1 g/dL (11.2-15.7); Immature Grans % 0.3 %; Lymphocytes % 31.9 %; MCH 30.1 pg (27.0-33.0); MCHC 34.2 % (32.0-36.0); MCV 88 fL (80-95); MPV 9.4 fL (8.0-11.0); Monocytes % 22.7 %; Platelet Count 258 10^3/uL (130-400); RBC 4.68 10^6/uL (3.93-5.22); RDW 12.5 % (11.7-14.6); WBC 3.13 10^3/uL (4.4-10.8)
== END 2024-08-12 10:20 | disposition home or self-care (01) ==
LOC: LBO 10:19
PROVIDERS: PCP Internal Medicine Hematology & Oncology; Visit Provider Nurse Practitioner Adult Health
DX: D69.3 Immune thrombocytopenic purpura (principal)
CPT/HCPCS: 36415; 85025

== ENCOUNTER 2024-09-16 10:38 | Outpatient (CLI) | payer OTHER, SELFPAY ==
[2024-09-16 09:41] LABS: Abs Immature Grans 0.03 10^3/uL (0.0-0.06); Absolute Basophil Count 0.03 10^3/uL (0.0-0.2); Absolute Eosinophil Count 0.65 10^3/uL (0.0-0.7); Absolute Lymphocyte Count 1.38 10^3/uL (1.2-3.4); Absolute Monocyte Count 0.65 10^3/uL (0.1-0.8); Absolute Neutrophil Count 3.41 10^3/uL (1.2-6.7); Basophils % 0.5 %; Eosinophils % 10.6 %; HCT 39.9 % (36.0-46.0); HGB 13.7 g/dL (11.2-15.7); Immature Grans % 0.5 %; Lymphocytes % 22.4 %; MCH 30.1 pg (27.0-33.0); MCHC 34.3 % (32.0-36.0); MCV 88 fL (80-95); MPV 9.9 fL (8.0-11.0); Monocytes % 10.6 %; Neutrophils % 55.4 %; Platelet Count 267 10^3/uL (130-400); RBC 4.55 10^6/uL (3.93-5.22); RDW 13.1 % (11.7-14.6); RDW-SD 42.1 fL; WBC 6.15 10^3/uL (4.4-10.8)
== END 2024-09-16 10:39 | disposition home or self-care (01) ==
LOC: LBO 10:38
PROVIDERS: PCP Internal Medicine Hematology & Oncology; Visit Provider Nurse Practitioner Adult Health
DX: D69.3 Immune thrombocytopenic purpura (principal)
CPT/HCPCS: 36415; 85025

== ENCOUNTER 2024-10-13 02:22 | Outpatient (CLI) | payer OTHER, SELFPAY ==
[2024-10-13 10:53] LABS: Abs Immature Grans 0.02 10^3/uL (0.0-0.06); Absolute Basophil Count 0.04 10^3/uL (0.0-0.2); Absolute Eosinophil Count 0.67 10^3/uL (0.0-0.7); Absolute Lymphocyte Count 1.44 10^3/uL (1.2-3.4); Absolute Monocyte Count 0.52 10^3/uL (0.1-0.8); Basophils % 0.7 %; Eosinophils % 11.2 %; HCT 41.2 % (36.0-46.0); Immature Grans % 0.3 %; MCV 88 fL (80-95); MPV 10.1 fL (8.0-11.0); Monocytes % 8.7 %; Neutrophils % 55.1 %; Platelet Count 274 10^3/uL (130-400); RBC 4.66 10^6/uL (3.93-5.22); RDW 12.5 % (11.7-14.6); RDW-SD 40.7 fL; WBC 5.99 10^3/uL (4.4-10.8)
== END 2024-10-13 02:23 | disposition home or self-care (01) ==
PROVIDERS: PCP Internal Medicine Hematology & Oncology; Visit Provider Nurse Practitioner Adult Health
DX: D69.3 Immune thrombocytopenic purpura (principal)
CPT/HCPCS: 36415; 85025

== ENCOUNTER 2024-11-10 09:11 | Outpatient (CLI) | payer OTHER, SELFPAY ==
[2024-11-10 09:11] LABS: Abs Immature Grans 0.01 10^3/uL (0.0-0.06); HCT 39.1 % (36.0-46.0); HGB 13.3 g/dL (11.2-15.7); Immature Grans % 0.2 %; MCH 30.0 pg (27.0-33.0); MCHC 34.0 % (32.0-36.0); MCV 88 fL (80-95); MPV 9.4 fL (8.0-11.0); Platelet Count 258 10^3/uL (130-400); RBC 4.43 10^6/uL (3.93-5.22); RDW 12.3 % (11.7-14.6); RDW-SD 40.1 fL; WBC 5.99 10^3/uL (4.4-10.8)
== END 2024-11-10 09:12 | disposition home or self-care (01) ==
LOC: LBO 09:11
PROVIDERS: PCP Internal Medicine Hematology & Oncology; Visit Provider Nurse Practitioner Adult Health
DX: D69.3 Immune thrombocytopenic purpura (principal)
CPT/HCPCS: 36415; 85025

== ENCOUNTER 2025-01-13 19:53 | Outpatient (CLI) | payer OTHER, SELFPAY ==
[2025-01-13 10:07] LABS: Abs Immature Grans 0.02 10^3/uL (0.0-0.06); HCT 38.9 % (36.0-46.0); HGB 13.1 g/dL (11.2-15.7); Immature Grans % 0.3 %; MCH 30.3 pg (27.0-33.0); MCHC 33.7 % (32.0-36.0); MCV 90 fL (80-95); MPV 9.1 fL (8.0-11.0); Platelet Count 285 10^3/uL (130-400); RBC 4.33 10^6/uL (3.93-5.22); RDW 12.7 % (11.7-14.6); RDW-SD 41.8 fL; WBC 6.89 10^3/uL (4.4-10.8)
== END 2025-01-13 19:54 | disposition home or self-care (01) ==
LOC: LBO 19:53
PROVIDERS: PCP Internal Medicine Hematology & Oncology; Visit Provider Nurse Practitioner Adult Health
DX: D69.3 Immune thrombocytopenic purpura (principal)
CPT/HCPCS: 36415; 85025

== ENCOUNTER 2025-03-23 00:35 | Outpatient (CLI) | payer OTHER, SELFPAY ==
[2025-03-23 12:02] LABS: Abs Immature Grans 0.01 10^3/uL (0.0-0.06); HCT 38.2 % (36.0-46.0); HGB 13.0 g/dL (11.2-15.7); Immature Grans % 0.2 %; MCH 30.8 pg (27.0-33.0); MCHC 34.0 % (32.0-36.0); MCV 91 fL (80-95); MPV 9.0 fL (8.0-11.0); Platelet Count 263 10^3/uL (130-400); RBC 4.22 10^6/uL (3.93-5.22); RDW 12.3 % (11.7-14.6); RDW-SD 40.8 fL; WBC 5.75 10^3/uL (4.4-10.8)
== END 2025-03-23 00:36 | disposition home or self-care (01) ==
PROVIDERS: PCP Internal Medicine Hematology & Oncology; Visit Provider Nurse Practitioner Adult Health
DX: D69.3 Immune thrombocytopenic purpura (principal)
CPT/HCPCS: 36415; 85025